=== PATIENT | male | born 1980 | race American Indian/Alaskan Native ===

== ENCOUNTER 2017-12-06 11:24 | Inpatient (IN) | payer OTHER ==
[2017-12-06 12:44] VITALS: BMI 22.2
--- NOTE | 2017-12-06 14:11 | HP ---
CIWA Score - CIWA Score Nausea/Vomitin-No Nausea/No Vomiting Muscle Tremors: 4-Moderate,w/Arms Extend Anxiety: 4-Mod. Anxious/Guarded Agitation: 4-Moderately Restless Paroxysmal Sweats: 3 Orientation: 0-Oriented Tacttile Disturbances: 0-None Auditory Disturbances: 0-None Visual Disturbances: 0-None Headache: 1-Very Mild CIWA-Ar Total Score: 16 Admission ROS BHS - HPI Chief Complaint: I need to stop drinking and get my life back. Allergies/Adverse Reactions: Allergies Allergy/AdvReac Type Severity Reaction Status Date / Time Penicillins Allergy Intermediate Rash Verified 12/06/17 13:24 egg Allergy Verified 12/06/17 13:24 chicken derived AdvReac Verified 12/06/17 13:24 tomato [Tomato] AdvReac Verified 12/06/17 13:24 History of Present Illness: pt is a 37yr old male with a history of alcohol and xanax and klonopin dependence seeking detox for treatment. pt is on a mmtp program received his dose of 40mg today verification done. Exam Limitations: No Limitations - Ebola screening Have you traveled outside of the country in the last 21 days: No Have you had contact with anyone from an Ebola affected area: No Have you been sick,other than usual withdrawal symptoms: No Do you have a fever: No - Review of Systems Constitutional: Diaphoresis, Loss of Appetite, Changes in sleep, Unintentional Wgt. Loss EENT: reports: Tearing Respiratory: reports: No Symptoms reported Cardiac: reports: No Symptoms Reported GI: reports: Poor Appetite, Poor Fluid Intake : reports: No Symptoms Reported Musculoskeletal: reports: Back Pain, Joint Pain Integumentary: reports: Flushing, Sweating Neuro: reports: Headache, Tingling, Tremors Endocrine: reports: Excessive Sweating, Flushing, Intolerance to Cold, Intolerance to Heat Hematology: reports: No Symptoms Reported Psychiatric: reports: Judgement Intact, Mood/Affect Appropiate, Orientated x3, Agitated, Anxious Other Systems: Reviewed and Negative Patient History - Patient Medical History Hx Anemia: No Hx Asthma: Yes Hx Chronic Obstructive Pulmonary Disease (COPD): No Hx Cancer: No Hx Cardiac Disorders: No Hx Congestive Heart Failure: No Hx Hypertension: No Hx Hypercholesterolemia: No Hx Pacemaker: No HX Cerebrovascular Accident: No Hx Seizures: No Hx Dementia: No Hx Diabetes: No Hx Gastrointestinal Disorders: No Hx Liver Disease: No Hx Genitourinary Disorders: No Hx Sexually Transmitted Disorders: No Hx Renal Disease (ESRD): No Hx Thyroid Disease: No Hx Human Immunodeficiency Virus (HIV): No (negative) Hx Hepatitis C: Yes (diagnosed in last 2yrs) Hx Depression: Yes Hx Suicide Attempt: No (denies) Hx Bipolar Disorder: No Hx Schizophrenia: No - Patient Surgical History Past Surgical History: Yes Hx Neurologic Surgery: No Hx Cataract Extraction: No Hx Cardiac Surgery: No Hx Lung Surgery: Yes (punctured left lung in 2006) Hx Breast Surgery: No Hx Breast Biopsy: No Hx Abdominal Surgery: No Hx Appendectomy: No Hx Cholecystectomy: No Hx Genitourinary Surgery: No Hx Section: No Hx Orthopedic Surgery: No Other Surgical History: lower back in 2006 Anesthesia Reaction: No - PPD History Previous Implant?: Yes Documented Results: Negative w/o proof Implanted On Prior R Admission?: Yes PPD to be Administered?: No - Reproductive History Patient is a Female of Child Bearing Age (11 -55 yrs old): No - Smoking Cessation Smoking history: Current every day smoker Have you smoked in the past 12 months: Yes Aproximately how many cigarettes per day: 6 Hx Chewing Tobacco Use: No Initiated information on smoking cessation: Yes 'Breaking Loose' booklet given: 12/06/17 - Substance & Tx. History Hx Alcohol Use: Yes Hx Substance Use: Yes Substance Use Type: Alcohol, Cocaine, Tranquilizers Hx Substance Use Treatment: Yes - Substances Abused Cocaine Route: Inhalation Frequency: Daily Amount used: 6 gms. Age of first use: 23 Date of Last Use: 12/06/17 Alcohol-vodka/beer Route: Oral Frequency: Daily Amount used: 1 gal./7-6 pks. Age of first use: 9 Date of Last Use: 12/05/17 Xanax/Klonopin Route: Oral Frequency: Daily Amount used: 8 mg./16 mg. Age of first use: 37 Date of Last Use: 12/05/17 Family Disease History - Family Disease History Family Disease History: Diabetes: Father, Other: Mother (depression) Admission Physical Exam BHS - Vital Signs Vital Signs: Vital Signs - 24 hr 12/06/17 12:41 Temperature 97.4 F L Pulse Rate 97 H Respiratory 20 Rate Blood Pressure 130/68 - Physical General Appearance: Yes: Appropriately Dressed, Mild Distress, Moderate Distress HEENTM: Yes: Hearing grossly Normal, Nasal Congestion, Rhinorrhea Respiratory: Yes: Lungs Clear, Normal Breath Sounds, No Respiratory Distress Neck: Yes: No masses,lesions,Nodules Breast: Yes: Within Normal Limits Cardiology: Yes: Regular Rhythm, Regular Rate, S1, S2 Abdominal: Yes: Normal Bowel Sounds, Non Tender, Soft Genitourinary: Yes: Within Normal Limits Back: Yes: Normal Inspection Musculoskeletal: Yes: full range of Motion, Back pain Extremities: Yes: Normal Capillary Refill, Non-Tender, Tremors Neurological: Yes: Fully Oriented, Normal Response Integumentary: Yes: Normal Color, Diaphoresis Lymphatic: Yes: Within Normal Limits - Diagnostic (1) Methadone maintenance therapy patient Current Visit: Yes Status: Chronic Comment: last dose received today with 40mg; dose verified with [facility] mmtp confirmed with BRITTANY Kirk and BRITTANY Garcia (2) Cocaine dependence Current Visit: No Status: Chronic Qualifiers: Substance use status: uncomplicated Qualified Code(s): F14.20 - Cocaine dependence, uncomplicated (3) H/O cardiac murmur Current Visit: No Status: Chronic (4) H/O scoliosis Current Visit: No Status: Chronic (5) Hepatitis C Current Visit: Yes Status: Chronic Qualifiers: Viral hepatitis chronicity: chronic (6) Nicotine dependence Current Visit: Yes Status: Chronic Qualifiers: Nicotine product type: cigarettes Substance use status: uncomplicated Qualified Code(s): F17.210 - Nicotine dependence, cigarettes, uncomplicated (7) Alcohol dependence with uncomplicated withdrawal Current Visit: Yes Status: Chronic (8) Asthma Current Visit: Yes Status: Chronic Qualifiers: Asthma severity: mild Cleared for Admission S - Detox or Rehab [facility] Level of Care: Medically Managed Detox Regimen/Protocol: Librium [facility] Breath Alcohol Content Breath Alcohol Content: 0 Urine Drug Screen - Results Drug Screen Negative: No Urine Drug Screen Results: JERMAINE-Cocaine, OPI-Opiates, BZO-Benzodiazepines, MTD- Methadone, OXY-Oxycodone
[2017-12-06] MEDS ORDERED: MAGNESIUM CITRATE 300 ML BOTTLE PO PRN (14:19)
[2017-12-06] MEDS ORDERED: hydrOXYzine PAMOATE 50 MG CAPSULE (FP) PO PRN (14:19)
[2017-12-06] MEDS ORDERED: MENTHOL/PHENOL 1 EACH UD MM PRN (14:19)
[2017-12-06] MEDS ORDERED: chlordiazePOXIDE HCL 25 MG CAPSULE PO PRN (14:19)
[2017-12-06] MEDS ORDERED: guaiFENesin/D-METHORPHAN HB 10 ML UNIT-DOSE CUPS PO PRN (14:19)
[2017-12-06] MEDS ORDERED: MAG HYDROX/AL HYDROX/SIMETH 30 ML UNIT-DOSE CUP PO PRN (14:19)
[2017-12-06] MEDS ORDERED: LOPERAMIDE HCL 2 MG CAPSULE PO PRN (14:19)
[2017-12-06] MEDS ORDERED: MAGNESIUM HYDROX 2400MG/30ML ORAL SUSPENSION 30 ML CUP PO PRN (14:19)
[2017-12-06] MEDS ORDERED: P-EPHED 60MG/TRIPROLIDI 2.5MG TABLET PO PRN (14:19)
[2017-12-06] MEDS ORDERED: NICOTINE POLACRILEX 4 MG GUM BUC PRN (14:19)
[2017-12-06] MEDS ORDERED: ACETAMINOPHEN 325 MG TABLET (FP) PO PRN (14:19)
[2017-12-06] MEDS ORDERED: ALBUTEROL SO4 18 GM HFA INHALER IH PRN (14:21)
[2017-12-06] MEDS ORDERED: chlordiazePOXIDE HCL 25 MG CAPSULE PO ONE (14:41)
[2017-12-06 17:12] LABS: URINE APPEARANCE SLCLOUDY; URINE BILIRUBIN NEGATIVE (NEGATIVE); URINE BLOOD NEGATIVE (NEGATIVE); URINE COLOR AMBER; URINE GLUCOSE (UA) NEGATIVE (NEGATIVE); URINE KETONE 2+ (NEGATIVE); URINE LEUK ESTERASE NEGATIVE (NEGATIVE); URINE NITRITE NEGATIVE (NEGATIVE)
[2017-12-06 17:13] LABS: URINE PROTEIN 1+ (NEGATIVE)
[2017-12-06 17:17] LABS: EPI CELLS RARE /HPF (FEW); URINE BACTERIA RARE /hpf (NONE SEEN); URINE MUCUS MANY
[2017-12-06] MEDS: chlordiazePOXIDE HCL 25 MG CAPSULE PO SCH ×2 (17:40→22:33)
[2017-12-06] MEDS: THIAMINE HCL 100 MG TABLET (FP) PO SCH (22:33)
[2017-12-07] MEDS: chlordiazePOXIDE HCL 25 MG CAPSULE PO SCH ×2 (06:59→10:14)
--- NOTE | 2017-12-07 07:26 | CONSULT ---
[facility] Psychiatric Consult - Data Date of interview: 12/07/17 Admission source: [facility] Identifying data: This is a 37years old AA male, , father of five, homelsee, on [place], with a history of Alcohol , Cocaine, Opioids and xanax, klonopin dependence seeking detox for treatment. Patient currently on a MMTP program receiveS his dose of 40mg daily, verification done. Substance Abuse History: Smoking history: Current every day smoker. Have you smoked in the past 12 months: Yes. Aproximately how many cigarettes per day: 6. Hx Chewing Tobacco Use: No. Initiated information on smoking cessation: Yes. 'Breaking Loose' booklet given: 12/06/17. - Substance & Tx. History. Hx Alcohol Use: Yes. Hx Substance Use: Yes. Substance Use Type: Alcohol, Cocaine , Tranquilizers. Hx Substance Use Treatment: Yes. - Substances Abused. Cocaine. Route: Inhalation. Frequency: Daily. Amount used: 6 gms. Age of first use: 23. Date of Last Use: 12/06/17. Alcohol-vodka/beer. Route: Oral. Frequency: Daily. Amount used: 1 gal./7-6 pks. Age of first use: 9. Date of Last Use: 12/05/17. Xanax/Klonopin. Route: Oral. Frequency: Daily. Amount used: 8 mg./16 mg. Age of first use: 37. Date of Last Use: 04/16 Medical History: Asthma, cardiac murmur history, Scoliosis, Hep C+, Psychiatric History: Patient denies past psychiatric history, reports no medications taking prior to admission Physical/Sexual Abuse/Trauma History: Denies Additional Comment: Observation. Detox Unit Care Protocol Mental Status Exam - Mental Status Exam Alert and Oriented to: Person Cognitive Function: Fair Patient Appearance: Unkempt Mood: Sad Affect: Flat Patient Behavior: Sedated Speech Pattern: Delayed Voice Loudness: Mildly Soft/Quiet Thought Process: Circumstantial Thought Disorder: Being Controlled Hallucinations: Denies Suicidal Ideation: Denies Homicidal Ideation: Denies Insight/Judgement: Fair Sleep: Difficulty falling asleep Appetite: Fair Muscle strength/Tone: Mild Hypotonicity Gait/Station: Shuffling Additional Comments: Observation. Detox Unit Care Protocol Psychiatric Findings - Problem List ([place] 1, 2,3) (1) Drug-induced mood disorder Current Visit: Yes Status: Suspected (2) Alcohol dependence with uncomplicated withdrawal Current Visit: Yes Status: Chronic (3) Methadone maintenance therapy patient Current Visit: Yes Status: Chronic Comment: last dose received today with 40mg; dose verified with [facility] mmtp confirmed with BRITTANY Kirk and BRITTANY Garcia (4) Nicotine dependence Current Visit: Yes Status: Chronic Qualifiers: Nicotine product type: cigarettes Substance use status: uncomplicated Qualified Code(s): F17.210 - Nicotine dependence, cigarettes, uncomplicated (5) Cocaine dependence Current Visit: No Status: Chronic Qualifiers: Substance use status: uncomplicated Qualified Code(s): F14.20 - Cocaine dependence, uncomplicated - Initial Treatment Plan Initial Treatment Plan: Observation. Detox Unit Care Protocol
[2017-12-07] MEDS: METHADONE HCL 40 MG DISPERSABLE TABLET PO SCH (10:13)
[2017-12-07] MEDS: PRENATAL VITAMINS W/ FOLIC ACID TABLET (FP) PO SCH (10:14)
[2017-12-07] MEDS: NICOTINE 21 MG/24 HOURS TOPICAL PATCH TD SCH (10:14)
[2017-12-07 10:18] LABS: HEMATOCRIT 38.9 % (35.4-49); HEMOGLOBIN 12.7 GM/dL (11.7-16.9); MCH 28.2 pg (25.7-33.7); MCHC 32.6 g/dl (32.0-35.9); MEAN CELL VOLUME 86.5 fl (80-96); MEAN PLT VOLUME 9.2 fl (7.5-11.1); PLATELET COUNT 176 K/MM3 (134-434); RDW 14.6 % (11.9-15.9); WHITE BLOOD COUNT 6.4 K/mm3 (4.0-10.0)
--- NOTE | 2017-12-07 10:24 | PN ---
S CIWA - CIWA Score Nausea/Vomitin Muscle Tremors: 3 Anxiety: 3 Agitation: 3 Paroxysmal Sweats: 1-Minimal Palms Moist Orientation: 0-Oriented Tacttile Disturbances: 1-Very Mild Itch/Numbness Auditory Disturbances: 1-Very Mild Visual Disturbances: 0-None Headache: 2-Mild CIWA-Ar Total Score: 17 BHS Progress Note (SOAP) Subjective: ALERT,IRRITABLE,ANXIOUS,INTERRUPTED SLEEP,TREMOR,PAIN IN THE BODY Objective: 12/07/17 10:22 Vital Signs Temperature 98.8 F 12/07/17 10:06 Pulse Rate 85 12/07/17 10:06 Respiratory Rate 20 12/07/17 10:06 Blood Pressure 111/69 12/07/17 10:06 O2 Sat by Pulse Oximetry (%) EKG NSR,NORMAL ECG Laboratory Last Values WBC 6.4 K/mm3 (4.0-10.0) D 12/07/17 06:00 RBC 4.50 M/mm3 (4.00-5.60) 12/07/17 06:00 Hgb 12.7 GM/dL (11.7-16.9) 12/07/17 06:00 Hct 38.9 % (35.4-49) 12/07/17 06:00 MCV 86.5 fl (80-96) 12/07/17 06:00 MCH 28.2 pg (25.7-33.7) 12/07/17 06:00 MCHC 32.6 g/dl (32.0-35.9) 12/07/17 06:00 RDW 14.6 % (11.9-15.9) 12/07/17 06:00 Plt Count 176 K/MM3 (134-434) 12/07/17 06:00 MPV 9.2 fl (7.5-11.1) 12/07/17 06:00 Urine Color Unique 12/06/17 15:50 Urine Appearance Slcloudy 12/06/17 15:50 Urine pH 5.0 (5.0-8.0) 12/06/17 15:50 Ur Specific [place] 1.033 (1.001-1.035) 12/06/17 15:50 Urine Protein 1+ (NEGATIVE) H 12/06/17 15:50 Urine Glucose (UA) Negative (NEGATIVE) 12/06/17 15:50 Urine Ketones 2+ (NEGATIVE) H 12/06/17 15:50 Urine Blood Negative (NEGATIVE) 12/06/17 15:50 Urine Nitrite Negative (NEGATIVE) 12/06/17 15:50 Urine Bilirubin Negative (NEGATIVE) 12/06/17 15:50 Urine Urobilinogen 2.0 mg/dL (0.2-1.0) 12/06/17 15:50 Ur Leukocyte Esterase Negative (NEGATIVE) 12/06/17 15:50 Urine WBC (Auto) 13 /hpf (3-5) 12/06/17 15:50 Urine RBC (Auto) 30 /hpf (0-3) 12/06/17 15:50 Ur Epithelial Cells Rare /HPF (FEW) 12/06/17 15:50 Urine Bacteria Rare /hpf (NONE SEEN) 12/06/17 15:50 Urine Mucus Many 12/06/17 15:50 LABS PENDING Assessment: 12/07/17 10:23 WITHDRAWAL SYMPTOM Plan: CONTINUE DETOX,REPEAT UA
[2017-12-07 10:25] LABS: CHLORIDE 100 mmol/L (98-107); POTASSIUM 3.9 mmol/L (3.5-5.1); SODIUM 136 mmol/L (136-145)
[2017-12-07 10:35] LABS: ALBUMIN 4.5 g/dl (3.4-5.0); ALK PHOS 104 U/L (45-117); ANION GAP 8 (8-16); BILIRUBIN,TOTAL 0.7 mg/dL (0.2-1.0); BLOOD UREA NITROGEN 19 mg/dL (7-18); CALCIUM 8.4 mg/dL (8.5-10.1); CO2 28 mmol/L (21-32); CREATININE 0.9 mg/dL (0.7-1.3); GLUCOSE,RANDOM 69 mg/dL (74-106); SGOT/AST 34 U/L (15-37); SGPT/ALT 29 U/L (12-78); TOT PROT 8.1 g/dl (6.4-8.2)
--- NOTE | 2017-12-07 12:16 | EKG ---
Test Reason : Blood Pressure : / mmHG Vent. Rate : 074 BPM Atrial Rate : 074 BPM P-R Int : 148 ms QRS Dur : 108 ms QT Int : 412 ms P-R-T Axes : 043 072 021 degrees QTc Int : 457 ms NORMAL SINUS RHYTHM NORMAL ECG NO PREVIOUS ECGS AVAILABLE Confirmed by ISELA DAWN MD ([id number]) on 12/07/2017 12:16:12 PM Referred By: Confirmed By:ISELA DAWN MD
--- NOTE | 2017-12-07 13:16 | PN ---
BHS Progress Note Note: PATIENT REQUESTED REGIMEN TO BE CHANGED TO VALIUM,INSTEAD OF LIBRIUM
[2017-12-07] MEDS ORDERED: diazePAM 5 MG TABLET PO ONE (13:47)
[2017-12-07] MEDS: diazePAM 5 MG TABLET PO SCH ×2 (14:02→22:16)
[2017-12-07] MEDS ORDERED: chlordiazePOXIDE HCL 25 MG CAPSULE PO SCH (17:00)
[2017-12-07 17:25] LABS: URINE APPEARANCE CLEAR; URINE BILIRUBIN NEGATIVE (NEGATIVE); URINE BLOOD NEGATIVE (NEGATIVE); URINE COLOR AMBER; URINE GLUCOSE (UA) NEGATIVE (NEGATIVE); URINE KETONE TRACE (NEGATIVE); URINE LEUK ESTERASE NEGATIVE (NEGATIVE); URINE NITRITE NEGATIVE (NEGATIVE); URINE PROTEIN NEGATIVE (NEGATIVE); URINE UROBILINOGEN 4.0 E.U/dl mg/dL (0.2-1.0)
[2017-12-07] MEDS: DOXYCYCLINE HYCLATE 100 MG TABLET PO SCH (18:50)
[2017-12-07] MEDS: THIAMINE HCL 100 MG TABLET (FP) PO SCH (22:16)
[2017-12-07] MEDS: IBUPROFEN 400 MG TABLET (FP) PO PRN (22:17)
[2017-12-08] MEDS: diazePAM 5 MG TABLET PO SCH ×3 (06:42→23:50)
[2017-12-08] MEDS: DOXYCYCLINE HYCLATE 100 MG TABLET PO SCH ×2 (10:19→17:04)
[2017-12-08] MEDS: PRENATAL VITAMINS W/ FOLIC ACID TABLET (FP) PO SCH (10:20)
[2017-12-08] MEDS: METHADONE HCL 40 MG DISPERSABLE TABLET PO SCH (10:20)
[2017-12-08] MEDS: NICOTINE 21 MG/24 HOURS TOPICAL PATCH TD SCH (10:20)
[2017-12-08] MEDS: diazePAM 5 MG TABLET PO PRN ×2 (10:23→17:01)
[2017-12-08] MEDS: IBUPROFEN 400 MG TABLET (FP) PO PRN (10:36)
--- NOTE | 2017-12-08 10:51 | PN ---
S CIWA - CIWA Score Nausea/Vomitin Muscle Tremors: 3 Anxiety: 2 Agitation: 2 Paroxysmal Sweats: 1-Minimal Palms Moist Orientation: 0-Oriented Tacttile Disturbances: 1-Very Mild Itch/Numbness Auditory Disturbances: 1-Very Mild Visual Disturbances: 1-Very Mild Sensitivity Headache: 2-Mild CIWA-Ar Total Score: 16 BHS Progress Note (SOAP) Subjective: ALERT,IRRITABLE,ANXIOUS,TREMOR,PAIN IN THE RIGHT ELBOW AT SITE OF IV INJECTION, WITH ERYTHEMA WITH PAIN ON MOVEMENT CELLULITIS Objective: 12/08/17 10:48 Vital Signs Temperature 98.1 F 12/07/17 22:23 Pulse Rate 85 12/07/17 22:23 Respiratory Rate 18 12/08/17 05:55 Blood Pressure 113/59 12/07/17 22:23 O2 Sat by Pulse Oximetry (%) 12/08/17 10:49 Laboratory Last Values WBC 6.4 K/mm3 (4.0-10.0) D 12/07/17 06:00 RBC 4.50 M/mm3 (4.00-5.60) 12/07/17 06:00 Hgb 12.7 GM/dL (11.7-16.9) 12/07/17 06:00 Hct 38.9 % (35.4-49) 12/07/17 06:00 MCV 86.5 fl (80-96) 12/07/17 06:00 MCH 28.2 pg (25.7-33.7) 12/07/17 06:00 MCHC 32.6 g/dl (32.0-35.9) 12/07/17 06:00 RDW 14.6 % (11.9-15.9) 12/07/17 06:00 Plt Count 176 K/MM3 (134-434) 12/07/17 06:00 MPV 9.2 fl (7.5-11.1) 12/07/17 06:00 Sodium 136 mmol/L (136-145) 12/07/17 06:00 Potassium 3.9 mmol/L (3.5-5.1) 12/07/17 06:00 Chloride 100 mmol/L (98-107) 12/07/17 06:00 Carbon Dioxide 28 mmol/L (21-32) 12/07/17 06:00 Anion Gap 8 (8-16) 12/07/17 06:00 BUN 19 mg/dL (7-18) H D 12/07/17 06:00 Creatinine 0.9 mg/dL (0.7-1.3) 12/07/17 06:00 Creat Clearance w eGFR > 60 (>60) 12/07/17 06:00 Random Glucose 69 mg/dL (74-106) L 12/07/17 06:00 Calcium 8.4 mg/dL (8.5-10.1) L 12/07/17 06:00 Total Bilirubin 0.7 mg/dL (0.2-1.0) D 12/07/17 06:00 AST 34 U/L (15-37) 12/07/17 06:00 ALT 29 U/L (12-78) 12/07/17 06:00 Alkaline Phosphatase 104 U/L (45-117) D 12/07/17 06:00 Total Protein 8.1 g/dl (6.4-8.2) D 12/07/17 06:00 Albumin 4.5 g/dl (3.4-5.0) D 12/07/17 06:00 Urine Color Unique 12/07/17 14:20 Urine Appearance Clear 12/07/17 14:20 Urine pH 6.0 (5.0-8.0) 12/07/17 14:20 Ur Specific [place] 1.028 (1.001-1.035) 12/07/17 14:20 Urine Protein Negative (NEGATIVE) 12/07/17 14:20 Urine Glucose (UA) Negative (NEGATIVE) 12/07/17 14:20 Urine Ketones Trace (NEGATIVE) H 12/07/17 14:20 Urine Blood Negative (NEGATIVE) 12/07/17 14:20 Urine Nitrite Negative (NEGATIVE) 12/07/17 14:20 Urine Bilirubin Negative (NEGATIVE) 12/07/17 14:20 Urine Urobilinogen 4.0 e.u/dl mg/dL (0.2-1.0) 12/07/17 14:20 Ur Leukocyte Esterase Negative (NEGATIVE) 12/07/17 14:20 Urine WBC (Auto) 13 /hpf (3-5) 12/06/17 15:50 Urine RBC (Auto) 30 /hpf (0-3) 12/06/17 15:50 Ur Epithelial Cells Rare /HPF (FEW) 12/06/17 15:50 Urine Bacteria Rare /hpf (NONE SEEN) 12/06/17 15:50 Urine Mucus Many 12/06/17 15:50 RPR Titer Nonreactive (NONREACTIVE) 12/07/17 06:00 HIV 1&2 Antibody Screen Negative 12/06/17 14:45 HIV P24 Antigen Negative 12/06/17 14:45 12/08/17 10:50 Laboratory Results - last 24 hr 12/06/17 12/07/17 12/07/17 14:45 06:00 14:20 Urine Color Unique Urine Appearance Clear Urine pH 6.0 Ur Specific [place] 1.028 Urine Protein Negative Urine Glucose (UA) Negative Urine Ketones Trace H Urine Blood Negative Urine Nitrite Negative Urine Bilirubin Negative Urine Urobilinogen 4.0 e.u/dl Ur Leukocyte Esterase Negative RPR Titer Nonreactive HIV 1&2 Antibody Screen Negative HIV P24 Antigen Negative Assessment: 12/08/17 10:48 WITHDRAWAL SYMPTOM CELLULITIS OF RIGHT ELBOW Plan: CONTINUE DETOX,CLINDAMYCIN 300 MGS PO TID FOR 7 DAYS
[2017-12-08] MEDS: CLINDAMYCIN HCL 150 MG CAPSULE (FP) PO SCH ×2 (14:40→22:50)
[2017-12-08] MEDS ORDERED: chlordiazePOXIDE 5 MG CAPSULE PO SCH (17:00)
[2017-12-08] MEDS: THIAMINE HCL 100 MG TABLET (FP) PO SCH (22:55)
[2017-12-09] MEDS: CLINDAMYCIN HCL 150 MG CAPSULE (FP) PO SCH ×3 (06:51→23:00)
[2017-12-09] MEDS ORDERED: ONDANSETRON *ODT* 4 MG TABLET SL PRN (09:32)
[2017-12-09] MEDS ORDERED: ONDANSETRON *ODT* 4 MG TABLET SL ONE (10:45)
[2017-12-09] MEDS: METHADONE HCL 40 MG DISPERSABLE TABLET PO SCH (11:04)
[2017-12-09] MEDS: PRENATAL VITAMINS W/ FOLIC ACID TABLET (FP) PO SCH (11:05)
[2017-12-09] MEDS: diazePAM 5 MG TABLET PO SCH ×2 (11:05→23:01)
[2017-12-09] MEDS: DOXYCYCLINE HYCLATE 100 MG TABLET PO SCH ×2 (11:05→17:21)
[2017-12-09] MEDS: NICOTINE 21 MG/24 HOURS TOPICAL PATCH TD SCH (11:07)
--- NOTE | 2017-12-09 12:52 | PN ---
BHS Progress Note (SOAP) Subjective: vomiting shakes R Antecubital pain Objective: 12/09/17 12:49 active vomiting sweats swelling to R antecubital area Assessment: 12/09/17 12:50 withdrawal sx tenderness/swelling to R AC s/p IVDA no acute distress Plan: continue detox zofran for nausea/vomiting hydrocortisone/bacitracin to AC area
[2017-12-09] MEDS ORDERED: BACITRACIN 0.9 GM PACKET TP PRN (12:56)
[2017-12-09] MEDS: diazePAM 5 MG TABLET PO PRN ×3 (13:15→21:27)
[2017-12-09] MEDS: IBUPROFEN 400 MG TABLET (FP) PO PRN ×2 (13:15→21:27)
[2017-12-09] MEDS ORDERED: HYDROCORTISONE 0.5% TOPICAL OINTMENT TUBE TP PRN (13:36)
[2017-12-09] MEDS ORDERED: chlordiazePOXIDE HCL 10 MG CAPSULE PO SCH (17:00)
[2017-12-09] MEDS: BACITRACIN 0.9 GM PACKET TP SCH (21:26)
[2017-12-09] MEDS: THIAMINE HCL 100 MG TABLET (FP) PO SCH (21:26)
[2017-12-10] MEDS: CLINDAMYCIN HCL 150 MG CAPSULE (FP) PO SCH ×3 (07:20→23:19)
[2017-12-10] MEDS ORDERED: BACITRACIN 0.9 GM PACKET ONE (09:20)
[2017-12-10] MEDS: diazePAM 5 MG TABLET PO PRN (09:23)
--- NOTE | 2017-12-10 10:34 | PN ---
BHS Progress Note (SOAP) Subjective: alert oriented x 3 mild anxiety less restlessness Objective: 12/10/17 10:33 Vital Signs Temperature 95.9 F L 12/10/17 09:58 Pulse Rate 68 12/10/17 09:58 Respiratory Rate 18 12/10/17 09:58 Blood Pressure 101/64 12/10/17 09:58 O2 Sat by Pulse Oximetry (%) Laboratory Last Values WBC 6.4 K/mm3 (4.0-10.0) D 12/07/17 06:00 RBC 4.50 M/mm3 (4.00-5.60) 12/07/17 06:00 Hgb 12.7 GM/dL (11.7-16.9) 12/07/17 06:00 Hct 38.9 % (35.4-49) 12/07/17 06:00 MCV 86.5 fl (80-96) 12/07/17 06:00 MCH 28.2 pg (25.7-33.7) 12/07/17 06:00 MCHC 32.6 g/dl (32.0-35.9) 12/07/17 06:00 RDW 14.6 % (11.9-15.9) 12/07/17 06:00 Plt Count 176 K/MM3 (134-434) 12/07/17 06:00 MPV 9.2 fl (7.5-11.1) 12/07/17 06:00 Sodium 136 mmol/L (136-145) 12/07/17 06:00 Potassium 3.9 mmol/L (3.5-5.1) 12/07/17 06:00 Chloride 100 mmol/L (98-107) 12/07/17 06:00 Carbon Dioxide 28 mmol/L (21-32) 12/07/17 06:00 Anion Gap 8 (8-16) 12/07/17 06:00 BUN 19 mg/dL (7-18) H D 12/07/17 06:00 Creatinine 0.9 mg/dL (0.7-1.3) 12/07/17 06:00 Creat Clearance w eGFR > 60 (>60) 12/07/17 06:00 Random Glucose 69 mg/dL (74-106) L 12/07/17 06:00 Calcium 8.4 mg/dL (8.5-10.1) L 12/07/17 06:00 Total Bilirubin 0.7 mg/dL (0.2-1.0) D 12/07/17 06:00 AST 34 U/L (15-37) 12/07/17 06:00 ALT 29 U/L (12-78) 12/07/17 06:00 Alkaline Phosphatase 104 U/L (45-117) D 12/07/17 06:00 Total Protein 8.1 g/dl (6.4-8.2) D 12/07/17 06:00 Albumin 4.5 g/dl (3.4-5.0) D 12/07/17 06:00 Urine Color Unique 12/07/17 14:20 Urine Appearance Clear 12/07/17 14:20 Urine pH 6.0 (5.0-8.0) 12/07/17 14:20 Ur Specific [place] 1.028 (1.001-1.035) 12/07/17 14:20 Urine Protein Negative (NEGATIVE) 12/07/17 14:20 Urine Glucose (UA) Negative (NEGATIVE) 12/07/17 14:20 Urine Ketones Trace (NEGATIVE) H 12/07/17 14:20 Urine Blood Negative (NEGATIVE) 12/07/17 14:20 Urine Nitrite Negative (NEGATIVE) 12/07/17 14:20 Urine Bilirubin Negative (NEGATIVE) 12/07/17 14:20 Urine Urobilinogen 4.0 e.u/dl mg/dL (0.2-1.0) 12/07/17 14:20 Ur Leukocyte Esterase Negative (NEGATIVE) 12/07/17 14:20 Urine WBC (Auto) 13 /hpf (3-5) 12/06/17 15:50 Urine RBC (Auto) 30 /hpf (0-3) 12/06/17 15:50 Ur Epithelial Cells Rare /HPF (FEW) 12/06/17 15:50 Urine Bacteria Rare /hpf (NONE SEEN) 12/06/17 15:50 Urine Mucus Many 12/06/17 15:50 RPR Titer Nonreactive (NONREACTIVE) 12/07/17 06:00 HIV 1&2 Antibody Screen Negative 12/06/17 14:45 HIV P24 Antigen Negative 12/06/17 14:45 lab noted Assessment: 12/10/17 10:33 mild withdrawal sx Plan: medically supervised detox
[2017-12-10] MEDS: METHADONE HCL 40 MG DISPERSABLE TABLET PO SCH (10:38)
[2017-12-10] MEDS: BACITRACIN 0.9 GM PACKET TP SCH ×2 (10:38→23:19)
[2017-12-10] MEDS: PRENATAL VITAMINS W/ FOLIC ACID TABLET (FP) PO SCH (10:38)
[2017-12-10] MEDS: DOXYCYCLINE HYCLATE 100 MG TABLET PO SCH ×2 (10:38→20:07)
[2017-12-10] MEDS: diazePAM 5 MG TABLET PO SCH ×2 (10:39→23:19)
[2017-12-10] MEDS: NICOTINE 21 MG/24 HOURS TOPICAL PATCH TD SCH (10:39)
[2017-12-10] MEDS: THIAMINE HCL 100 MG TABLET (FP) PO SCH (23:19)
[2017-12-11] MEDS: CLINDAMYCIN HCL 150 MG CAPSULE (FP) PO SCH (08:30)
--- NOTE | 2017-12-11 08:39 | DS ---
[facility] Detox Discharge Summary Admission Date: 12/06/17 Discharge Date: 12/11/17 - History Present History: Alcohol Dependence, Cocaine Dependence, MMTP Additional Comments: follow up with after care program as arrangement Pertinent Past History: asthma hepatitis c nicotine dependence history of scoliosis cellulitis left elbow - Physical Exam Results Vital Signs: Vital Signs Temperature 97.9 F 12/11/17 06:13 Pulse Rate 66 12/11/17 06:13 Respiratory Rate 18 12/11/17 06:13 Blood Pressure 110/54 12/11/17 06:13 O2 Sat by Pulse Oximetry (%) Pertinent Admission Physical Exam Findings: withdrawal symptom and finding - Treatment Hospital Course: Detox Protocol Followed, Detoxed Safely, Responded well, Discharged Condition Good, Rehab Referral Accepted Patient has Accepted a Rehab Referral to: [facility] - Medication Discharge Medications: Ambulatory Orders Albuterol Sulfate Inhaler - [Ventolin HFA Inhaler -] 2 inh IH Q4H PRN #0 inh - Diagnosis (1) Alcohol dependence with uncomplicated withdrawal Current Visit: Yes Status: Acute (2) Asthma Current Visit: Yes Status: Chronic Qualifiers: Asthma severity: mild (3) Hepatitis C Current Visit: Yes Status: Chronic Qualifiers: Viral hepatitis chronicity: chronic (4) Methadone maintenance therapy patient Current Visit: Yes Status: Chronic (5) Nicotine dependence Current Visit: Yes Status: Chronic Qualifiers: Nicotine product type: cigarettes Substance use status: uncomplicated Qualified Code(s): F17.210 - Nicotine dependence, cigarettes, uncomplicated (6) Drug-induced mood disorder Current Visit: Yes Status: Suspected (7) Cocaine dependence Current Visit: No Status: Chronic Qualifiers: Substance use status: uncomplicated Qualified Code(s): F14.20 - Cocaine dependence, uncomplicated (8) H/O scoliosis Current Visit: No Status: Chronic (9) Cellulitis Current Visit: Yes Status: Acute - AMA Did Patient Leave Against Medical Advice: No
[2017-12-11] MEDS ORDERED: BACITRACIN 0.9 GM PACKET ONE (09:15)
[2017-12-11] MEDS ORDERED: diazePAM 5 MG TABLET PO SCH (10:00)
[2017-12-11] MEDS: PRENATAL VITAMINS W/ FOLIC ACID TABLET (FP) PO SCH (10:11)
[2017-12-11] MEDS: METHADONE HCL 40 MG DISPERSABLE TABLET PO SCH (10:11)
[2017-12-11] MEDS: BACITRACIN 0.9 GM PACKET TP SCH (10:12)
[2017-12-11] MEDS: DOXYCYCLINE HYCLATE 100 MG TABLET PO SCH (10:12)
[2017-12-11] MEDS: NICOTINE 21 MG/24 HOURS TOPICAL PATCH TD SCH (10:12)
[2017-12-11 10:33] VITALS: BP 114/56; PULSE 71; TEMP 97.2
== END 2017-12-11 11:25 | disposition other institution (70) | DRG 773 ==
LOC: YASAS 11:24 → Y6N 14:34
PROVIDERS: ADMIT Internal Medicine; ATTEND Internal Medicine
PROC: HZ2ZZZZ Detoxification Services for Substance Abuse Treatment (ICD-10-PCS; principal; 2017-12-06)
DX: F10.230 Alcohol dependence with withdrawal, uncomplicated (principal); F11.20 Opioid dependence, uncomplicated; F14.20 Cocaine dependence, uncomplicated; F17.210 Nicotine dependence, cigarettes, uncomplicated; F19.24 Other psychoactive substance dependence with psychoactive substance-induced mood disorder; J45.909 Unspecified asthma, uncomplicated; B18.2 Chronic viral hepatitis C; L03.113 Cellulitis of right upper limb; M41.9 Scoliosis, unspecified; R01.1 Cardiac murmur, unspecified; Z88.0 Allergy status to penicillin; Z91.012 Allergy to eggs
CPT/HCPCS: 36415; 80053; 81003; 81015; 85027; 86593; 87389; 93005; 93010

== ENCOUNTER 2017-12-11 11:34 | Inpatient (IN) | payer OTHER ==
[2017-12-11 12:23] VITALS: BMI 23.1
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
[2017-12-11] MEDS ORDERED: hydrOXYzine PAMOATE 50 MG CAPSULE (FP) PO PRN (13:34)
[2017-12-11] MEDS ORDERED: guaiFENesin/D-METHORPHAN HB 10 ML UNIT-DOSE CUPS PO PRN (13:34)
[2017-12-11] MEDS ORDERED: LOPERAMIDE HCL 2 MG CAPSULE PO PRN (13:34)
[2017-12-11] MEDS ORDERED: P-EPHED 60MG/TRIPROLIDI 2.5MG TABLET PO PRN (13:34)
[2017-12-11] MEDS ORDERED: MENTHOL/PHENOL 1 EACH UD MM PRN (13:34)
[2017-12-11] MEDS ORDERED: MAG HYDROX/AL HYDROX/SIMETH 30 ML UNIT-DOSE CUP PO PRN (13:34)
[2017-12-11] MEDS ORDERED: MAGNESIUM CITRATE 300 ML BOTTLE PO PRN (13:34)
[2017-12-11] MEDS ORDERED: IBUPROFEN 400 MG TABLET (FP) PO PRN (13:34)
[2017-12-11] MEDS ORDERED: MAGNESIUM HYDROX 2400MG/30ML ORAL SUSPENSION 30 ML CUP PO PRN (13:34)
--- NOTE | 2017-12-11 13:34 | HP ---
[facility] Rehab Assess/Revision - Admission History Admitted to Rehab from: [facility] [place] Date of Admission to Rehab: 12/11/2017 - Vital signs Vital Signs: Vital Signs Period Temp Pulse Resp BP Sys/Martin Pulse Ox Last 24 Hr 97.7 F 92 20 116/69 - Findings Detox History & Physical reviewed: Yes Concur with findings: Yes Inpatient Rehab Admission - Initial Determination Are CD services needed?: Yes Free of communicable disease: Yes Not in need of hospitalization: Yes - Rehab Admission Criteria Lacks judgement: Yes Patient is meeting Inpatient Rehab admission criteria:: Yes
[2017-12-11] MEDS ORDERED: ALBUTEROL SO4 18 GM HFA INHALER IH PRN (13:35)
[2017-12-11] MEDS ORDERED: COLLOIDAL OATMEAL 1 BAR EACH TP PRN (15:17)
[2017-12-11] MEDS: DOXYCYCLINE HYCLATE 100 MG TABLET PO SCH (17:46)
[2017-12-11] MEDS ORDERED: PT OWN MED DRAWER 7, Y5N ONE (20:14)
[2017-12-11] MEDS: THIAMINE HCL 100 MG TABLET (FP) PO SCH (21:11)
[2017-12-11] MEDS: OLANZapine 5 MG TABLET PO SCH (21:11)
[2017-12-11] MEDS: lamoTRIgine 25 MG TABLET PO SCH (21:12)
[2017-12-11] MEDS: NICOTINE POLACRILEX 2 MG GUM BUC PRN (21:12)
[2017-12-12] MEDS ORDERED: METHADONE HCL 40 MG DISPERSABLE TABLET PO SCH (06:00)
[2017-12-12] MEDS: ACETAMINOPHEN 325 MG TABLET (FP) PO PRN ×2 (06:43→18:09)
[2017-12-12] MEDS: DOXYCYCLINE HYCLATE 100 MG TABLET PO SCH ×2 (09:58→18:08)
[2017-12-12] MEDS ORDERED: PT OWN MED DRAWER 7, Y5N ONE ×2 (09:59→18:08)
[2017-12-12] MEDS: NICOTINE 14 MG/24 HOURS TOPICAL PATCH TD SCH (09:59)
[2017-12-12] MEDS: PRENATAL VITAMINS W/ FOLIC ACID TABLET (FP) PO SCH (09:59)
--- NOTE | 2017-12-12 14:07 | PN ---
[facility] Progress Note (SOAP) Subjective: c/o increasing pain right antecubital fossa from injecting cocaine or cafeine pills since admisssion. Objective: 12/12/17 14:06 Vital Signs - 24 hr 12/12/17 07:03 Temperature 97.6 F Pulse Rate 65 Respiratory 18 Rate Blood Pressure 102/54 labs reveiwed 12/12/17 14:06 tender nodule r antecubital fossa, no flutuance or erythema Assessment: 12/12/17 14:07 infected injection site, start bactrimds bid, naprosyn bid for pauin
[2017-12-12] MEDS: SULFAMETHOXAZOLE/TRIMETHOPRIM 800MG/160MG D.S. TABLET PO SCH (21:28)
[2017-12-12] MEDS: THIAMINE HCL 100 MG TABLET (FP) PO SCH (21:28)
[2017-12-12] MEDS: lamoTRIgine 25 MG TABLET PO SCH (21:28)
[2017-12-12] MEDS: NAPROXEN 500 MG TABLET (FP) PO SCH (21:28)
[2017-12-12] MEDS: OLANZapine 5 MG TABLET PO SCH (21:29)
[2017-12-13] MEDS: NAPROXEN 500 MG TABLET (FP) PO SCH ×2 (09:51→21:23)
[2017-12-13] MEDS: PRENATAL VITAMINS W/ FOLIC ACID TABLET (FP) PO SCH (09:51)
[2017-12-13] MEDS: SULFAMETHOXAZOLE/TRIMETHOPRIM 800MG/160MG D.S. TABLET PO SCH ×2 (09:52→21:23)
[2017-12-13] MEDS: METHADONE HCL 40 MG DISPERSABLE TABLET PO SCH (09:52)
[2017-12-13] MEDS: NICOTINE 14 MG/24 HOURS TOPICAL PATCH TD SCH (09:52)
[2017-12-13] MEDS: DOXYCYCLINE HYCLATE 100 MG TABLET PO SCH ×2 (09:53→17:02)
[2017-12-13] MEDS ORDERED: PT OWN MED DRAWER 7, Y5N ONE ×2 (09:53→16:38)
[2017-12-13] MEDS ORDERED: PANTOPRAZOLE 40 MG TABLET (FP) PO SCH (10:00)
--- NOTE | 2017-12-13 12:19 | PN ---
[facility] Progress Note (SOAP) Subjective: pain and swelling dereased si on antibiotics prescribed, Objective: 12/13/17 12:18 Vital Signs - 24 hr 12/13/17 00:30 Respiratory 18 Rate labs reviewed Assessment: 12/13/17 12:19 abscess /cellulitis imporved on antibiotics
[2017-12-13] MEDS: THIAMINE HCL 100 MG TABLET (FP) PO SCH (21:23)
[2017-12-13] MEDS: lamoTRIgine 25 MG TABLET PO SCH (21:23)
[2017-12-13] MEDS: OLANZapine 5 MG TABLET PO SCH (21:24)
[2017-12-14] MEDS ORDERED: PT OWN MED DRAWER 7, Y5N ONE (08:59)
[2017-12-14] MEDS: NAPROXEN 500 MG TABLET (FP) PO SCH ×2 (10:00→22:07)
[2017-12-14] MEDS: SULFAMETHOXAZOLE/TRIMETHOPRIM 800MG/160MG D.S. TABLET PO SCH ×2 (10:00→22:08)
[2017-12-14] MEDS: NICOTINE 14 MG/24 HOURS TOPICAL PATCH TD SCH (10:00)
[2017-12-14] MEDS: PANTOPRAZOLE 40 MG TABLET (FP) PO SCH (10:01)
[2017-12-14] MEDS: DOXYCYCLINE HYCLATE 100 MG TABLET PO SCH ×2 (10:01→18:30)
[2017-12-14] MEDS: METHADONE HCL 40 MG DISPERSABLE TABLET PO SCH (10:01)
[2017-12-14] MEDS: PRENATAL VITAMINS W/ FOLIC ACID TABLET (FP) PO SCH (10:01)
[2017-12-14] MEDS: NICOTINE POLACRILEX 2 MG GUM BUC PRN (10:04)
[2017-12-14] MEDS ORDERED: METHADONE HCL 40 MG DISPERSABLE TABLET PO SCH (12:13)
--- NOTE | 2017-12-14 12:14 | PN ---
S Progress Note (SOAP) Subjective: patient wishes to decrease methadone to switch to suboxone will decrease by 10% to 35mg per week while in rehab Objective: 12/14/17 12:14 Vital Signs - 24 hr 12/14/17 12/14/17 12/14/17 00:30 03:30 06:50 Temperature 98.2 F Pulse Rate 67 Respiratory 17 16 18 Rate Blood Pressure 110/68 labs reviewed order placed as requested
[2017-12-14] MEDS ORDERED: METHADONE 30 MG, METHADONE 5 MG PO ONE (12:45)
[2017-12-14] MEDS ORDERED: METHADONE HCL 5 MG TABLET ONE (13:02)
[2017-12-14] MEDS ORDERED: METHADONE HCL 10 MG TABLET ONE (13:02)
[2017-12-14] MEDS: THIAMINE HCL 100 MG TABLET (FP) PO SCH (22:07)
[2017-12-14] MEDS: OLANZapine 5 MG TABLET PO SCH (22:07)
[2017-12-14] MEDS: lamoTRIgine 25 MG TABLET PO SCH (22:07)
[2017-12-15] MEDS ORDERED: METHADONE HCL 10 MG TABLET ONE ×2 (04:13→10:50)
[2017-12-15] MEDS ORDERED: METHADONE HCL 5 MG TABLET ONE ×2 (04:13→10:50)
[2017-12-15] MEDS ORDERED: METHADONE 30 MG, METHADONE 5 MG PO SCH (06:00)
[2017-12-15] MEDS: DOXYCYCLINE HYCLATE 100 MG TABLET PO SCH ×2 (10:15→17:57)
[2017-12-15] MEDS: SULFAMETHOXAZOLE/TRIMETHOPRIM 800MG/160MG D.S. TABLET PO SCH ×2 (10:15→21:29)
[2017-12-15] MEDS: PANTOPRAZOLE 40 MG TABLET (FP) PO SCH (10:15)
[2017-12-15] MEDS: NAPROXEN 500 MG TABLET (FP) PO SCH ×2 (10:15→21:29)
[2017-12-15] MEDS: NICOTINE 14 MG/24 HOURS TOPICAL PATCH TD SCH (10:15)
[2017-12-15] MEDS: PRENATAL VITAMINS W/ FOLIC ACID TABLET (FP) PO SCH (10:16)
[2017-12-15] MEDS ORDERED: METHADONE HCL 10 MG TABLET PO ONE (10:21)
[2017-12-15] MEDS ORDERED: METHADONE 30 MG, METHADONE 5 MG PO ONE (10:45)
[2017-12-15] MEDS: NICOTINE POLACRILEX 2 MG GUM BUC PRN (13:24)
[2017-12-15] MEDS: THIAMINE HCL 100 MG TABLET (FP) PO SCH (21:29)
[2017-12-15] MEDS: lamoTRIgine 25 MG TABLET PO SCH (21:29)
[2017-12-15] MEDS: OLANZapine 5 MG TABLET PO SCH (21:30)
[2017-12-16] MEDS ORDERED: METHADONE HCL 5 MG TABLET ONE (08:58)
[2017-12-16] MEDS ORDERED: METHADONE HCL 10 MG TABLET ONE (08:58)
[2017-12-16] MEDS: DOXYCYCLINE HYCLATE 100 MG TABLET PO SCH ×2 (09:53→17:25)
[2017-12-16] MEDS: PRENATAL VITAMINS W/ FOLIC ACID TABLET (FP) PO SCH (09:53)
[2017-12-16] MEDS: METHADONE 30 MG, METHADONE 5 MG PO SCH (09:53)
[2017-12-16] MEDS: NAPROXEN 500 MG TABLET (FP) PO SCH ×2 (09:53→21:20)
[2017-12-16] MEDS: SULFAMETHOXAZOLE/TRIMETHOPRIM 800MG/160MG D.S. TABLET PO SCH ×2 (09:53→21:20)
[2017-12-16] MEDS: PANTOPRAZOLE 40 MG TABLET (FP) PO SCH (09:53)
[2017-12-16] MEDS: NICOTINE 14 MG/24 HOURS TOPICAL PATCH TD SCH (09:54)
[2017-12-16] MEDS: THIAMINE HCL 100 MG TABLET (FP) PO SCH (21:19)
[2017-12-16] MEDS: lamoTRIgine 25 MG TABLET PO SCH (21:19)
[2017-12-16] MEDS: OLANZapine 5 MG TABLET PO SCH (21:21)
[2017-12-17] MEDS ORDERED: METHADONE HCL 10 MG TABLET ONE (08:41)
[2017-12-17] MEDS ORDERED: METHADONE HCL 5 MG TABLET ONE (08:41)
[2017-12-17] MEDS: DOXYCYCLINE HYCLATE 100 MG TABLET PO SCH ×2 (09:49→17:49)
[2017-12-17] MEDS: PANTOPRAZOLE 40 MG TABLET (FP) PO SCH (09:49)
[2017-12-17] MEDS: SULFAMETHOXAZOLE/TRIMETHOPRIM 800MG/160MG D.S. TABLET PO SCH ×2 (09:49→22:16)
[2017-12-17] MEDS: PRENATAL VITAMINS W/ FOLIC ACID TABLET (FP) PO SCH (09:50)
[2017-12-17] MEDS: NAPROXEN 500 MG TABLET (FP) PO SCH ×2 (09:50→22:16)
[2017-12-17] MEDS: METHADONE 30 MG, METHADONE 5 MG PO SCH (09:50)
[2017-12-17] MEDS: ACETAMINOPHEN 325 MG TABLET (FP) PO PRN (11:29)
[2017-12-17] MEDS: NICOTINE 14 MG/24 HOURS TOPICAL PATCH TD SCH (11:30)
[2017-12-17] MEDS: THIAMINE HCL 100 MG TABLET (FP) PO SCH (22:16)
[2017-12-17] MEDS: lamoTRIgine 25 MG TABLET PO SCH (22:16)
[2017-12-17] MEDS: OLANZapine 5 MG TABLET PO SCH (22:17)
[2017-12-18] MEDS ORDERED: METHADONE HCL 10 MG TABLET ONE (08:53)
[2017-12-18] MEDS ORDERED: METHADONE HCL 5 MG TABLET ONE (08:54)
[2017-12-18] MEDS: PRENATAL VITAMINS W/ FOLIC ACID TABLET (FP) PO SCH (09:59)
[2017-12-18] MEDS: METHADONE 30 MG, METHADONE 5 MG PO SCH (10:00)
[2017-12-18] MEDS: NAPROXEN 500 MG TABLET (FP) PO SCH ×2 (10:00→21:19)
[2017-12-18] MEDS: PANTOPRAZOLE 40 MG TABLET (FP) PO SCH (10:00)
[2017-12-18] MEDS: SULFAMETHOXAZOLE/TRIMETHOPRIM 800MG/160MG D.S. TABLET PO SCH ×2 (10:00→21:19)
[2017-12-18] MEDS: DOXYCYCLINE HYCLATE 100 MG TABLET PO SCH (10:00)
[2017-12-18] MEDS: NICOTINE 14 MG/24 HOURS TOPICAL PATCH TD SCH (10:04)
[2017-12-18] MEDS ORDERED: COLLOIDAL OATMEAL 1 BAR EACH TP PRN (14:11)
--- NOTE | 2017-12-18 14:13 | PN ---
S Progress Note (SOAP) Subjective: c/o soap allergy and requesting gingerall Objective: 12/18/17 14:12 Vital Signs - 24 hr 12/18/17 12/18/17 00:30 03:30 Respiratory 18 18 Rate labs reviewed, no rash noted but will give soap Assessment: 12/18/17 14:12 aveeno soap and danita brodie ordered as per patietn request most likely pcontact dermatitis from soap
[2017-12-18] MEDS: ACETAMINOPHEN 325 MG TABLET (FP) PO PRN (14:17)
[2017-12-18] MEDS: THIAMINE HCL 100 MG TABLET (FP) PO SCH (21:19)
[2017-12-18] MEDS: lamoTRIgine 25 MG TABLET PO SCH (21:19)
[2017-12-18] MEDS: OLANZapine 5 MG TABLET PO SCH (21:20)
[2017-12-19] MEDS ORDERED: METHADONE HCL 10 MG TABLET ONE (08:56)
[2017-12-19] MEDS ORDERED: METHADONE HCL 5 MG TABLET ONE (08:56)
[2017-12-19] MEDS: PANTOPRAZOLE 40 MG TABLET (FP) PO SCH (09:45)
[2017-12-19] MEDS: PRENATAL VITAMINS W/ FOLIC ACID TABLET (FP) PO SCH (09:45)
[2017-12-19] MEDS: NAPROXEN 500 MG TABLET (FP) PO SCH ×2 (09:46→21:46)
[2017-12-19] MEDS: METHADONE 30 MG, METHADONE 5 MG PO SCH (09:46)
[2017-12-19] MEDS: SULFAMETHOXAZOLE/TRIMETHOPRIM 800MG/160MG D.S. TABLET PO SCH ×2 (09:46→21:46)
[2017-12-19] MEDS: NICOTINE 14 MG/24 HOURS TOPICAL PATCH TD SCH (09:46)
[2017-12-19] MEDS: THIAMINE HCL 100 MG TABLET (FP) PO SCH (21:46)
[2017-12-19] MEDS: OLANZapine 5 MG TABLET PO SCH (21:46)
[2017-12-19] MEDS: lamoTRIgine 25 MG TABLET PO SCH (21:46)
[2017-12-20] MEDS ORDERED: METHADONE HCL 5 MG TABLET ONE (08:39)
[2017-12-20] MEDS ORDERED: METHADONE HCL 10 MG TABLET ONE (08:39)
[2017-12-20] MEDS: METHADONE 30 MG, METHADONE 5 MG PO SCH (10:05)
[2017-12-20] MEDS: SULFAMETHOXAZOLE/TRIMETHOPRIM 800MG/160MG D.S. TABLET PO SCH ×2 (10:06→21:21)
[2017-12-20] MEDS: PRENATAL VITAMINS W/ FOLIC ACID TABLET (FP) PO SCH (10:06)
[2017-12-20] MEDS: PANTOPRAZOLE 40 MG TABLET (FP) PO SCH (10:06)
[2017-12-20] MEDS: NAPROXEN 500 MG TABLET (FP) PO SCH ×2 (10:06→21:21)
[2017-12-20] MEDS: NICOTINE 14 MG/24 HOURS TOPICAL PATCH TD SCH (10:09)
[2017-12-20] MEDS ORDERED: METHADONE HCL 10 MG TABLET PO SCH (15:26)
--- NOTE | 2017-12-20 15:34 | PN ---
S Progress Note (SOAP) Subjective: patient requesting suboxoen induction while in rehab as he will have more choice of facilities he can go to after discharge, has been on methadone 35mg with no withdrawal sx or craving noted by patietn was on 40mg prior to admission greater than 2 weeks. Objective: 12/20/17 15:34 Vital Signs - 24 hr 12/20/17 12/20/17 12/20/17 00:30 03:30 06:51 Temperature 97.6 F Pulse Rate 69 Respiratory 20 20 16 Rate Blood Pressure 95/63 labs revivewed Assessment: 12/20/17 15:34 oud on mat with methadone 35mg daily >2 weeks, will decrease dose to 15mg and assess for suboxone induction on monday as per patien request.
[2017-12-20] MEDS: lamoTRIgine 25 MG TABLET PO SCH (21:21)
[2017-12-20] MEDS: THIAMINE HCL 100 MG TABLET (FP) PO SCH (21:21)
[2017-12-20] MEDS: OLANZapine 5 MG TABLET PO SCH (21:22)
[2017-12-21] MEDS: PRENATAL VITAMINS W/ FOLIC ACID TABLET (FP) PO SCH (09:52)
[2017-12-21] MEDS: PANTOPRAZOLE 40 MG TABLET (FP) PO SCH (09:52)
[2017-12-21] MEDS: SULFAMETHOXAZOLE/TRIMETHOPRIM 800MG/160MG D.S. TABLET PO SCH ×2 (09:52→21:19)
[2017-12-21] MEDS: NAPROXEN 500 MG TABLET (FP) PO SCH ×2 (09:52→21:19)
[2017-12-21] MEDS ORDERED: METHADONE HCL 10 MG TABLET PO ONE (10:00)
[2017-12-21] MEDS: NICOTINE 14 MG/24 HOURS TOPICAL PATCH TD SCH (10:34)
--- NOTE | 2017-12-21 12:35 | PN ---
Psychiatric Progress Note Vital Signs: Vital Signs Period Temp Pulse Resp BP Sys/Martin Pulse Ox Last 24 Hr 98.2 F 56 18-20 115/58 Date of Session: 12/21/17 Chief Complaint:: "I would like to have my medications increased." HPI: Pt. with a history of cocaine, benzodiazepine, and alcohol dependence. ROS: Unremarkable. Current Medications: Active Medications Generic Name Dose Route Start Last Admin Trade Name Freq PRN Reason Stop Dose Admin Acetaminophen 650 mg 12/11/17 13:34 12/18/17 14:17 Tylenol - PO 650 mg Q4H PRN Administration FEVER Al Hydroxide/Mg Hydroxide 30 ml 12/11/17 13:34 Mylanta Oral Suspension - PO Q6H PRN DYSPEPSIA Albuterol Sulfate 2 puff 12/11/17 13:35 Ventolin Hfa Inhaler - IH Q4H PRN ASTHMA Buspirone HCl 15 mg 12/11/17 22:00 12/21/17 09:52 Buspar - PO 15 mg BID LEANN Administration Colloidal Oatmeal 1 applic 12/11/17 15:17 12/18/17 14:18 Aveeno Soap - TP 1 bar DAILY PRN Administration HYGEINE Colloidal Oatmeal 1 applic 12/18/17 14:11 Aveeno Soap - TP DAILY PRN HYGEINE Eucalyptus/Menthol/Phenol/Sorbitol 1 each 12/11/17 13:34 Cepastat Lozenge - MM Q4H PRN SORE THROAT Guaifenesin 10 ml 12/11/17 13:34 Robitussin Dm - PO Q6H PRN COUGH Hydroxyzine Pamoate 50 mg 12/11/17 13:34 Vistaril - PO Q4H PRN AGITATION Lamotrigine 25 mg 12/11/17 22:00 12/20/17 21:21 Lamictal - PO 25 mg HS LEANN Administration Loperamide HCl 4 mg 12/11/17 13:34 Imodium - PO Q6H PRN DIARRHEA Magnesium Citrate 300 ml 12/11/17 13:34 Citroma - PO Q48H PRN CONSTIPATION Magnesium Hydroxide 30 ml 12/11/17 13:34 Milk Of Magnesia - PO DAILY PRN CONSTIPATION Methadone HCl 20 mg 12/23/17 10:00 Dolophine - PO 12/23/17 10:01 ONCE ONE Methadone HCl 15 mg 12/24/17 10:00 Dolophine - PO 12/24/17 10:01 ONCE ONE Methadone HCl 20 mg/ Methadone 25 mg 12/22/17 10:00 HCl 5 mg PO 12/22/17 10:01 ONCE ONE Naproxen 500 mg 12/12/17 22:00 12/21/17 09:52 Naprosyn - PO 500 mg BID LEANN Administration Nicotine 14 mg 12/12/17 10:00 12/21/17 10:34 Nicoderm Patch - TD Not Given DAILY LEANN Nicotine Polacrilex 2 mg 12/11/17 13:34 12/15/17 13:24 Nicorette Gum - BUC 2 mg Q2H PRN Administration NICOTINE REPLACEMENT RX Olanzapine 5 mg 12/11/17 22:00 12/20/17 21:22 Zyprexa - PO Not Given HS LEANN Pantoprazole Sodium 40 mg 12/14/17 10:00 12/21/17 09:52 Protonix - PO 40 mg DAILY LEANN Administration Multivit/Folic Acid/Iron 1 tab 12/12/17 10:00 12/21/17 09:52 Vitamins (Sjr) - PO 1 tab DAILY LEANN Administration Pseudoephedrine/Triprolidine 1 combo 12/11/17 13:34 Actifed - PO TID PRN NASAL CONGESTION Thiamine HCl 100 mg 12/11/17 22:00 12/20/17 21:21 Vitamin B1 - PO 100 mg HS LEANN Administration Trimethoprim/Sulfamethoxazole 1 each 12/12/17 22:00 12/21/17 09:52 Bactrim Ds - PO 1 each BID LEANN Administration Medication(s) Change(s): Yes. Lamicatal to be increased from 25mg PO daily to 25mg BID. Zyprexa increased from 5mg to 7.5mg qhs. Current Side Effect: No Lab tests ordered: No Lab tests reviewed: Yes Provider note:: [employer] met with patient in reference for his request for a psychiatric follow up. Pt. requesting medication increased in both his lamictal and zyprexa. Chart reviewed. Pharmacy claims reviewed. Pt. was given prescription of lamictal 50mg BID and Zyprexa 10mg qhs on 11/29/17. Pt. has tolerated lamictal 25mg PO daily and zyprexa 5mg for ten days. Will increase zyprexa to 7.5mg qhs. At this time lamictal will be held until patient has taken lamictal 25mg PO daily for approximately for two weeks. Pt. agreeable with plan. Benefits and side effects discussed. Verbal consent given. Total face to face time:: 25 Mental Status Exam - Mental Status Exam Alert and Oriented to: Time, Place, Person Cognitive Function: Good Patient Appearance: Well Groomed Mood: Hopeful Affect: Appropriate Patient Behavior: Appropriate, Cooperative Speech Pattern: Clear, Appropriate Voice Loudness: Normal Thought Process: Goal Oriented Thought Disorder: Not Present Hallucinations: Denies Suicidal Ideation: Denies Homicidal Ideation: Denies Insight/Judgement: Fair Sleep: Fair Appetite: Good Muscle strength/Tone: Normal Gait/Station: Normal Psychiatric Treatment Plan - Problem List (1) Alcohol dependence Current Visit: Yes (2) Cocaine dependence Current Visit: No Qualifiers: Substance use status: uncomplicated Qualified Code(s): F14.20 - Cocaine dependence, uncomplicated (3) Nicotine dependence Current Visit: No Qualifiers: Nicotine product type: cigarettes Substance use status: uncomplicated Qualified Code(s): F17.210 - Nicotine dependence, cigarettes, uncomplicated (4) Bipolar disorder Current Visit: Yes Comment: Self reports. (5) PTSD (post-traumatic stress disorder) Current Visit: Yes Comment: Self reports.
[2017-12-21] MEDS: THIAMINE HCL 100 MG TABLET (FP) PO SCH (21:19)
[2017-12-21] MEDS: lamoTRIgine 25 MG TABLET PO SCH (21:19)
[2017-12-21] MEDS: OLANZapine 7.5 MG TABLET PO SCH (22:00)
[2017-12-22] MEDS: NAPROXEN 500 MG TABLET (FP) PO SCH ×2 (09:51→21:30)
[2017-12-22] MEDS: SULFAMETHOXAZOLE/TRIMETHOPRIM 800MG/160MG D.S. TABLET PO SCH ×2 (09:51→21:29)
[2017-12-22] MEDS: PANTOPRAZOLE 40 MG TABLET (FP) PO SCH (09:51)
[2017-12-22] MEDS ORDERED: METHADONE HCL 10 MG TABLET ONE (09:52)
[2017-12-22] MEDS: PRENATAL VITAMINS W/ FOLIC ACID TABLET (FP) PO SCH (09:52)
[2017-12-22] MEDS ORDERED: METHADONE HCL 5 MG TABLET ONE (09:53)
[2017-12-22] MEDS: NICOTINE 14 MG/24 HOURS TOPICAL PATCH TD SCH (09:55)
[2017-12-22] MEDS ORDERED: METHADONE 20 MG, METHADONE 5 MG PO ONE (10:00)
--- NOTE | 2017-12-22 13:41 | PN ---
[facility] Progress Note (SOAP) Subjective: feeling some withdrawal sx, asked if he should take monday dose, advised to take monday dose Objective: 12/22/17 13:40 Vital Signs - 24 hr 12/22/17 12/22/17 12/22/17 00:30 03:30 07:08 Temperature 98.3 F Pulse Rate 73 Respiratory 16 16 18 Rate Blood Pressure 109/79 labs reveiwed Assessment: 12/22/17 13:40 OUD on [facility] detox now for subxone induction to take place on Monday, rreporting withdrawal sx so should be good to go should take all methadone oredered over the weekend.
[2017-12-22] MEDS ORDERED: METHADONE HCL 10 MG TABLET PO ONE (15:30)
[2017-12-22] MEDS: THIAMINE HCL 100 MG TABLET (FP) PO SCH (21:29)
[2017-12-22] MEDS: OLANZapine 7.5 MG TABLET PO SCH (21:29)
[2017-12-22] MEDS: lamoTRIgine 25 MG TABLET PO SCH (21:29)
[2017-12-23] MEDS: SULFAMETHOXAZOLE/TRIMETHOPRIM 800MG/160MG D.S. TABLET PO SCH ×2 (09:57→21:31)
[2017-12-23] MEDS: NICOTINE 14 MG/24 HOURS TOPICAL PATCH TD SCH (09:57)
[2017-12-23] MEDS: PRENATAL VITAMINS W/ FOLIC ACID TABLET (FP) PO SCH (09:58)
[2017-12-23] MEDS: NAPROXEN 500 MG TABLET (FP) PO SCH ×2 (09:58→21:31)
[2017-12-23] MEDS: PANTOPRAZOLE 40 MG TABLET (FP) PO SCH (09:58)
[2017-12-23] MEDS ORDERED: METHADONE HCL 10 MG TABLET PO ONE (10:00)
[2017-12-23] MEDS: lamoTRIgine 25 MG TABLET PO SCH (21:31)
[2017-12-23] MEDS: THIAMINE HCL 100 MG TABLET (FP) PO SCH (21:31)
[2017-12-23] MEDS: OLANZapine 7.5 MG TABLET PO SCH (22:23)
[2017-12-24] MEDS: PRENATAL VITAMINS W/ FOLIC ACID TABLET (FP) PO SCH (09:25)
[2017-12-24] MEDS: SULFAMETHOXAZOLE/TRIMETHOPRIM 800MG/160MG D.S. TABLET PO SCH ×2 (09:25→21:31)
[2017-12-24] MEDS: NAPROXEN 500 MG TABLET (FP) PO SCH ×2 (09:25→21:31)
[2017-12-24] MEDS: PANTOPRAZOLE 40 MG TABLET (FP) PO SCH (09:25)
[2017-12-24] MEDS: NICOTINE 14 MG/24 HOURS TOPICAL PATCH TD SCH (09:25)
[2017-12-24] MEDS ORDERED: METHADONE HCL 5 MG TABLET PO ONE (10:00)
--- NOTE | 2017-12-24 11:48 | PN ---
[facility] Progress Note (SOAP) Subjective: c/o opioid withdrawwal sx after rapid methadone detox , relieved by methadone dose today. wants t0 start suboxone induction in am Objective: 12/24/17 11:46 Vital Signs - 24 hr 12/24/17 12/24/17 12/24/17 00:30 03:30 10:00 Temperature 98.6 F Pulse Rate 99 H Respiratory 16 18 18 Rate Blood Pressure 106/76 labs reviewed, lfts wnl Assessment: 12/24/17 11:46 OUD on [facility] will d/c methadone in am and start suboxone induction w 2mg x1 dose at 10am. if toleratted can take 4mg x1 dose at 6PM, then start 8mg dsuboxone daily at 10 Am prioto discharge. this will give him more choice of rehab after care facilitites and he was on a low methadone dose on the [facility] patietn aware of risks and beneits and side effects including precipitated withdrawl.
[2017-12-24] MEDS: lamoTRIgine 25 MG TABLET PO SCH (21:31)
[2017-12-24] MEDS: THIAMINE HCL 100 MG TABLET (FP) PO SCH (21:31)
[2017-12-24] MEDS: OLANZapine 7.5 MG TABLET PO SCH (21:33)
[2017-12-25] MEDS: PRENATAL VITAMINS W/ FOLIC ACID TABLET (FP) PO SCH (09:52)
[2017-12-25] MEDS: SULFAMETHOXAZOLE/TRIMETHOPRIM 800MG/160MG D.S. TABLET PO SCH ×2 (09:52→21:19)
[2017-12-25] MEDS: NAPROXEN 500 MG TABLET (FP) PO SCH ×2 (09:52→21:19)
[2017-12-25] MEDS: PANTOPRAZOLE 40 MG TABLET (FP) PO SCH (09:52)
[2017-12-25] MEDS: NICOTINE 14 MG/24 HOURS TOPICAL PATCH TD SCH (09:53)
[2017-12-25] MEDS ORDERED: BUPRENORPHINE/NALOXONE 2 MG/0.5 MG FILM PACKET SL ONE ×4 (10:00→18:00)
[2017-12-25] MEDS: ACETAMINOPHEN 325 MG TABLET (FP) PO PRN (11:30)
--- NOTE | 2017-12-25 12:56 | PN ---
S Progress Note Note: suboxone induction today. Patient reports no withdrawal symptoms and tolerating medication well. Vital Signs Temperature 98.6 F 12/24/17 10:00 Pulse Rate 98 H 12/25/17 10:00 Respiratory Rate 12/25/17 10:00 Blood Pressure 137/79 12/25/17 10:00 O2 Sat by Pulse Oximetry (%) Patient in no apparent distress, AOx3 , ambulating in the unit. Continue to monitor
[2017-12-25] MEDS: lamoTRIgine 25 MG TABLET PO SCH (21:19)
[2017-12-25] MEDS: THIAMINE HCL 100 MG TABLET (FP) PO SCH (21:19)
[2017-12-25] MEDS: OLANZapine 7.5 MG TABLET PO SCH (21:20)
[2017-12-26] MEDS: OLANZapine 7.5 MG TABLET PO SCH ×2 (00:13→21:31)
[2017-12-26] MEDS: BUPRENORPHINE/NALOXONE 8 MG/2 MG FILM PACKET SL SCH (09:47)
[2017-12-26] MEDS: PRENATAL VITAMINS W/ FOLIC ACID TABLET (FP) PO SCH (09:47)
[2017-12-26] MEDS: NAPROXEN 500 MG TABLET (FP) PO SCH ×2 (09:47→21:31)
[2017-12-26] MEDS: PANTOPRAZOLE 40 MG TABLET (FP) PO SCH (09:47)
[2017-12-26] MEDS: SULFAMETHOXAZOLE/TRIMETHOPRIM 800MG/160MG D.S. TABLET PO SCH ×2 (09:47→21:31)
[2017-12-26] MEDS: NICOTINE 14 MG/24 HOURS TOPICAL PATCH TD SCH (09:49)
[2017-12-26] MEDS: ACETAMINOPHEN 325 MG TABLET (FP) PO PRN (15:15)
[2017-12-26] MEDS: lamoTRIgine 25 MG TABLET PO SCH (21:31)
[2017-12-26] MEDS: THIAMINE HCL 100 MG TABLET (FP) PO SCH (21:31)
[2017-12-27] MEDS: BUPRENORPHINE/NALOXONE 8 MG/2 MG FILM PACKET SL SCH (09:53)
[2017-12-27] MEDS: SULFAMETHOXAZOLE/TRIMETHOPRIM 800MG/160MG D.S. TABLET PO SCH ×2 (09:53→21:22)
[2017-12-27] MEDS: PRENATAL VITAMINS W/ FOLIC ACID TABLET (FP) PO SCH (09:53)
[2017-12-27] MEDS: NAPROXEN 500 MG TABLET (FP) PO SCH ×2 (09:53→21:22)
[2017-12-27] MEDS: NICOTINE 14 MG/24 HOURS TOPICAL PATCH TD SCH (09:53)
[2017-12-27] MEDS: PANTOPRAZOLE 40 MG TABLET (FP) PO SCH (09:53)
[2017-12-27] MEDS: ACETAMINOPHEN 325 MG TABLET (FP) PO PRN ×2 (10:38→17:05)
[2017-12-27] MEDS: THIAMINE HCL 100 MG TABLET (FP) PO SCH (21:22)
[2017-12-27] MEDS: lamoTRIgine 25 MG TABLET PO SCH (21:22)
[2017-12-27] MEDS: OLANZapine 7.5 MG TABLET PO SCH (21:22)
[2017-12-28 06:53] VITALS: BP 101/67; PULSE 92; TEMP 98.2
--- NOTE | 2017-12-28 09:44 | PN ---
[facility] Progress Note Note: Patient has completed this program today after meeting his expected treatment goals. He was referred to [facility] and [facility] as alternate in order to continue to address his issues. Scripts for 30 days supply for Lamictal 25 mg po BID, Buspar 15 mg po BID and Zyprexa 7.5 mg po HS were electronically transmitted to [facility] at [address] [place] [phone]. He was stable for discharge. See nursing staff note for further information
== END 2017-12-28 08:10 | disposition home or self-care (01) | DRG 772 ==
LOC: YASAS 11:34 → Y3W 11:37
PROVIDERS: ADMIT Psychiatry & Neurology Psychiatry; ATTEND Psychiatry & Neurology Psychiatry
PROC: HZ42ZZZ Group Counseling for Substance Abuse Treatment, Cognitive-Behavioral (ICD-10-PCS; principal; 2017-12-11)
DX: F10.20 Alcohol dependence, uncomplicated (principal); F11.23 Opioid dependence with withdrawal; F14.20 Cocaine dependence, uncomplicated; F17.210 Nicotine dependence, cigarettes, uncomplicated; F31.9 Bipolar disorder, unspecified; F43.10 Post-traumatic stress disorder, unspecified; F19.24 Other psychoactive substance dependence with psychoactive substance-induced mood disorder; J45.909 Unspecified asthma, uncomplicated; L03.113 Cellulitis of right upper limb; R01.1 Cardiac murmur, unspecified; B18.2 Chronic viral hepatitis C; L25.9 Unspecified contact dermatitis, unspecified cause; Z88.0 Allergy status to penicillin; Z91.012 Allergy to eggs

== ENCOUNTER 2022-05-04 11:41 | Inpatient (IN) | payer OTHER ==
[2022-05-04 12:39] VITALS: BMI 20.9
[2022-05-04] MEDS ORDERED: NALOXONE HCL (KLOXXADO) 8 MG SPRAY NS PRN (12:53)
[2022-05-04] MEDS ORDERED: DICYCLOMINE HCL 10 MG CAPSULE PO PRN (12:53)
[2022-05-04] MEDS ORDERED: MAG HYDROX/AL HYDROX/SIMETH 30 ML UNIT-DOSE CUP PO PRN (12:53)
[2022-05-04] MEDS ORDERED: NICOTINE 10 MG CARTRIDGE (INHALER) IH PRN (12:53)
[2022-05-04] MEDS ORDERED: IBUPROFEN 400 MG TABLET (FP) PO PRN (12:53)
[2022-05-04] MEDS ORDERED: MAGNESIUM HYDROX 2400MG/30ML ORAL SUSPENSION 30 ML CUP PO PRN (12:53)
[2022-05-04] MEDS ORDERED: IBUPROFEN 600 MG TABLET (FP) PO PRN (12:53)
[2022-05-04] MEDS ORDERED: LOPERAMIDE HCL 2 MG CAPSULE PO PRN (12:53)
[2022-05-04] MEDS ORDERED: ACETAMINOPHEN 325 MG TABLET (FP) PO PRN ×2 (12:53)
[2022-05-04] MEDS ORDERED: BISMUTH SUBSALICYLATE 262 MG/15 ML BTL PO PRN (12:53)
[2022-05-04] MEDS ORDERED: ONDANSETRON *ODT* 4 MG TABLET SL PRN (12:53)
[2022-05-04] MEDS ORDERED: BENZOCAINE/MENTHOL (CHLORASEPTIC ) LOZENGE MM PRN (12:53)
[2022-05-04] MEDS ORDERED: METHOCARBAMOL 500 MG TABLET PO PRN (12:53)
[2022-05-04] MEDS ORDERED: MAGNESIUM CITRATE 300 ML BOTTLE PO PRN (12:53)
[2022-05-04] MEDS ORDERED: NICOTINE POLACRILEX 2 MG GUM BUC PRN (12:53)
[2022-05-04] MEDS ORDERED: cloNIDine HCL 0.1 MG TABLET PO PRN (12:53)
[2022-05-04] MEDS ORDERED: methaDONE HCL 10 MG TABLET (FOR DETOX USE ONLY) PO ONE (12:53)
[2022-05-04] MEDS: PRENATAL VITAMINS W/ FOLIC ACID TABLET (FP) PO SCH (14:09)
[2022-05-04] MEDS: hydrOXYzine PAMOATE 25 MG CAPSULE (FP) PO SCH ×3 (14:12→23:07)
[2022-05-04] MEDS: THIAMINE HCL 100 MG TABLET (FP) PO SCH (23:07)
[2022-05-04] MEDS: MELATONIN 5 MG TABLETS PO SCH (23:07)
[2022-05-05] MEDS: hydrOXYzine PAMOATE 25 MG CAPSULE (FP) PO SCH ×5 (07:27→23:26)
[2022-05-05] MEDS ORDERED: methaDONE HCL 10 MG TABLET (FOR DETOX USE ONLY) ONE (09:10)
[2022-05-05] MEDS: PRENATAL VITAMINS W/ FOLIC ACID TABLET (FP) PO SCH (10:25)
[2022-05-05 14:27] LABS: HEMATOCRIT 36.4 % (35.4-49); HEMOGLOBIN 12.4 GM/dL (11.7-16.9); MCH 28.5 pg (25.7-33.7); MCHC 34.2 g/dl (32.0-35.9); MEAN CELL VOLUME 83.5 fl (80-96); MEAN PLT VOLUME 7.8 fl (7.5-11.1); PLATELET COUNT 174 10^3/uL (134-434); RBC 4.36 M/mm3 (4.00-5.60); RDW 14.7 % (11.9-15.9); WHITE BLOOD COUNT 3.3 K/mm3 (4.0-10.0)
[2022-05-05 14:43] LABS: BLOOD UREA NITROGEN 20.3 mg/dL (7-18)
[2022-05-05 14:44] LABS: ALBUMIN 3.5 g/dl (3.4-5.0); CALCIUM 9.2 mg/dL (8.5-10.1)
[2022-05-05 14:49] LABS: BILIRUBIN,TOTAL 0.3 mg/dL (0.2-1); TOT PROT 7.1 g/dl (6.4-8.2)
[2022-05-05] MEDS: diazePAM 5 MG TABLET PO PRN (15:07)
[2022-05-05] MEDS: MELATONIN 5 MG TABLETS PO SCH (23:25)
[2022-05-05] MEDS: THIAMINE HCL 100 MG TABLET (FP) PO SCH (23:26)
[2022-05-06] MEDS: hydrOXYzine PAMOATE 25 MG CAPSULE (FP) PO SCH ×5 (07:04→22:32)
[2022-05-06] MEDS ORDERED: methaDONE HCL 10 MG TABLET (FOR DETOX USE ONLY) PO ONE (10:00)
[2022-05-06] MEDS: PRENATAL VITAMINS W/ FOLIC ACID TABLET (FP) PO SCH (10:22)
[2022-05-06] MEDS: diazePAM 5 MG TABLET PO PRN (10:25)
[2022-05-06] MEDS: MELATONIN 5 MG TABLETS PO SCH (22:32)
[2022-05-06] MEDS: THIAMINE HCL 100 MG TABLET (FP) PO SCH (22:32)
[2022-05-07] MEDS: hydrOXYzine PAMOATE 25 MG CAPSULE (FP) PO SCH ×2 (06:25→10:10)
[2022-05-07] MEDS ORDERED: methaDONE HCL 10 MG TABLET (FOR DETOX USE ONLY) ONE (09:04)
[2022-05-07 09:25] VITALS: BP 100/60; PULSE 58; TEMP 98.7
[2022-05-07] MEDS: PRENATAL VITAMINS W/ FOLIC ACID TABLET (FP) PO SCH (10:10)
[2022-05-07] MEDS: diazePAM 5 MG TABLET PO PRN (10:11)
[2022-05-08] MEDS ORDERED: methaDONE HCL 10 MG TABLET (FOR DETOX USE ONLY) PO ONE (10:00)
== END 2022-05-07 11:20 | disposition left against medical advice (07) | DRG 770 ==
LOC: YASAS 11:41 → Y3N 13:44
PROVIDERS: ADMIT Allergy & Immunology; ATTEND Surgery
PROC: HZ2ZZZZ Detoxification Services for Substance Abuse Treatment (ICD-10-PCS; principal; 2022-05-04)
DX: F11.23 Opioid dependence with withdrawal (principal); F14.20 Cocaine dependence, uncomplicated; F10.10 Alcohol abuse, uncomplicated; F17.210 Nicotine dependence, cigarettes, uncomplicated; F43.10 Post-traumatic stress disorder, unspecified; B18.2 Chronic viral hepatitis C; J45.20 Mild intermittent asthma, uncomplicated; M41.9 Scoliosis, unspecified; Z88.0 Allergy status to penicillin; Z91.012 Allergy to eggs; Z91.018 Allergy to other foods
CPT/HCPCS: 36415; 80053; 85027; 86780; C9803-CS; U0003; U0005

== ENCOUNTER 2022-07-04 18:18 | Emergency (ER) | payer OTHER ==
[2022-07-04 18:41] VITALS: BP 134/93; RESP 18; TEMP 98.6; BMI 19.0
[2022-07-04 20:18] LABS: BASO % 0.3 % (0-2.0); HEMATOCRIT 40.2 % (35.4-49); HEMOGLOBIN 13.3 GM/dL (11.7-16.9); LYMPH % 8.9 % (8-40); MCH 28.5 pg (25.7-33.7); MCHC 33.2 g/dl (32.0-35.9); MEAN PLT VOLUME 8.1 fl (7.5-11.1); MONO % 12.9 % (3.8-10.2); NEUT % 77.9 % (42.8-82.8); PLATELET COUNT 151 10^3/uL (134-434); RBC 4.68 M/mm3 (4.00-5.60); RDW 14.6 % (11.9-15.9); WHITE BLOOD COUNT 6.8 K/mm3 (4.0-10.0)
[2022-07-04] MEDS ORDERED: SODIUM CHLORIDE 0.9% 500 ML INFUS.BAG IV ONE ×2 (20:20→20:38)
[2022-07-04 20:26] LABS: CHLORIDE 105 mmol/L (98-107); SODIUM 138 mmol/L (136-145)
[2022-07-04 20:28] LABS: ANION GAP 10 MMOL/L (8-16); BLOOD UREA NITROGEN 17.9 mg/dL (7-18); CALCIUM 8.9 mg/dL (8.5-10.1); CO2 23 mmol/L (21-32); GLUCOSE,RANDOM 104 mg/dL (74-106)
[2022-07-04 20:29] LABS: ALBUMIN 4.2 g/dl (3.4-5.0)
[2022-07-04 20:31] LABS: CREATININE 1.2 mg/dL (0.55-1.3); SGPT/ALT 36 U/L (13-61)
[2022-07-04 20:32] LABS: SGOT/AST 40 U/L (15-37)
[2022-07-04 20:33] LABS: BILIRUBIN,TOTAL 0.3 mg/dL (0.2-1)
[2022-07-04 20:34] LABS: ALK PHOS 91 U/L (45-117)
[2022-07-04] MEDS ORDERED: ACETAMINOPHEN 1000 MG/100 ML BAG IVPB ONE (20:38)
[2022-07-04] MEDS ORDERED: ACETAMINOPHEN INJECTION 100 ML IVPB ONE (20:40)
[2022-07-04 21:03] LABS: METHADONE, UR NEGATIVE (NEGATIVE); PHENCYCLIDINE,URINE NEGATIVE (NEGATIVE); URINE AMPHETAMINES NEGATIVE (NEGATIVE); URINE BARBITURATES NEGATIVE (NEGATIVE); URINE BENZODIAZEPINES NEGATIVE (NEGATIVE)
[2022-07-04 21:06] LABS: COCAINE, UR POSITIVE (NEGATIVE); OPIATES, URI POSITIVE (NEGATIVE)
[2022-07-04 22:19] VITALS: PULSE 88
[2022-07-04] MEDS ORDERED: IBUPROFEN 400 MG TABLET (FP) PO ONE ×2 (23:04→23:08)
== END 2022-07-04 23:15 | disposition home or self-care (01) ==
LOC: JER 18:18
PROC: 3E0333Z Introduction of Anti-inflammatory into Peripheral Vein, Percutaneous Approach (ICD-10-PCS; principal; 2022-07-04)
DX: T40.2X1A Poisoning by other opioids, accidental (unintentional), initial encounter (principal)
CPT/HCPCS: 36415; 80053; 80307; 85025; 93005; 93010; 99284-25

== ENCOUNTER 2022-07-27 08:40 | Inpatient (IN) | payer OTHER ==
[2022-07-27 10:38] VITALS: BMI 22.5
[2022-07-27] MEDS ORDERED: MAG HYDROX/AL HYDROX/SIMETH 30 ML UNIT-DOSE CUP PO PRN (11:30)
[2022-07-27] MEDS ORDERED: ONDANSETRON *ODT* 4 MG TABLET SL PRN (11:30)
[2022-07-27] MEDS ORDERED: NALOXONE HCL (KLOXXADO) 8 MG SPRAY NS PRN (11:30)
[2022-07-27] MEDS ORDERED: MAGNESIUM CITRATE 300 ML BOTTLE PO PRN (11:30)
[2022-07-27] MEDS ORDERED: METHOCARBAMOL 500 MG TABLET PO PRN (11:30)
[2022-07-27] MEDS ORDERED: BISMUTH SUBSALICYLATE 262 MG/15 ML BTL PO PRN (11:30)
[2022-07-27] MEDS ORDERED: LOPERAMIDE HCL 2 MG CAPSULE PO PRN (11:30)
[2022-07-27] MEDS ORDERED: MAGNESIUM HYDROX 2400MG/30ML ORAL SUSPENSION 30 ML CUP PO PRN (11:30)
[2022-07-27] MEDS ORDERED: BENZOCAINE/MENTHOL (CHLORASEPTIC ) LOZENGE MM PRN (11:30)
[2022-07-27] MEDS ORDERED: DICYCLOMINE HCL 10 MG CAPSULE PO PRN (11:30)
[2022-07-27] MEDS ORDERED: ACETAMINOPHEN 325 MG TABLET (FP) PO PRN (11:30)
[2022-07-27] MEDS ORDERED: IBUPROFEN 400 MG TABLET (FP) PO PRN (11:30)
[2022-07-27] MEDS ORDERED: NICOTINE 10 MG CARTRIDGE (INHALER) IH PRN (11:30)
[2022-07-27] MEDS ORDERED: NICOTINE POLACRILEX 2 MG GUM BUC PRN (11:30)
[2022-07-27] MEDS: PRENATAL VITAMINS W/ FOLIC ACID TABLET (FP) PO SCH (12:09)
[2022-07-27] MEDS: ACETAMINOPHEN 325 MG TABLET (FP) PO PRN (12:13)
[2022-07-27] MEDS: hydrOXYzine PAMOATE 25 MG CAPSULE (FP) PO SCH ×3 (14:52→23:13)
[2022-07-27 16:56] LABS: HEMOGLOBIN 13.4 GM/dL (11.7-16.9); MCH 28.3 pg (25.7-33.7); MCHC 33.4 g/dl (32.0-35.9); MEAN CELL VOLUME 84.7 fl (80-96); MEAN PLT VOLUME 8.6 fl (7.5-11.1); PLATELET COUNT 187 10^3/uL (134-434); RBC 4.72 M/mm3 (4.00-5.60); RDW 14.7 % (11.9-15.9)
[2022-07-27 16:57] LABS: ALBUMIN 3.8 g/dl (3.4-5.0); BLOOD UREA NITROGEN 16.5 mg/dL (7-18)
[2022-07-27 17:00] LABS: CREATININE 0.8 mg/dL (0.55-1.3)
[2022-07-27 17:02] LABS: BILIRUBIN,TOTAL 0.3 mg/dL (0.2-1); TOT PROT 7.6 g/dl (6.4-8.2)
[2022-07-27] MEDS: THIAMINE HCL 100 MG TABLET (FP) PO SCH (23:13)
[2022-07-27] MEDS: MELATONIN 5 MG TABLETS PO SCH (23:13)
[2022-07-28] MEDS: hydrOXYzine PAMOATE 25 MG CAPSULE (FP) PO SCH ×5 (05:45→22:25)
[2022-07-28] MEDS ORDERED: cloNIDine HCL 0.1 MG TABLET PO PRN (08:56)
[2022-07-28] MEDS ORDERED: methaDONE HCL 10 MG TABLET (FOR DETOX USE ONLY) PO ONE (08:56)
[2022-07-28] MEDS: PRENATAL VITAMINS W/ FOLIC ACID TABLET (FP) PO SCH (10:34)
[2022-07-28] MEDS: ACETAMINOPHEN 325 MG TABLET (FP) PO PRN (12:24)
[2022-07-28] MEDS: THIAMINE HCL 100 MG TABLET (FP) PO SCH (22:25)
[2022-07-28] MEDS: MELATONIN 5 MG TABLETS PO SCH (22:26)
[2022-07-28] MEDS: IBUPROFEN 600 MG TABLET (FP) PO PRN (23:10)
[2022-07-29] MEDS: hydrOXYzine PAMOATE 25 MG CAPSULE (FP) PO SCH ×2 (06:28→10:38)
[2022-07-29] MEDS: IBUPROFEN 600 MG TABLET (FP) PO PRN (09:16)
[2022-07-29 09:41] VITALS: BP 106/74; PULSE 81; RESP 17; TEMP 98
[2022-07-29] MEDS: PRENATAL VITAMINS W/ FOLIC ACID TABLET (FP) PO SCH (10:38)
[2022-07-30] MEDS ORDERED: methaDONE HCL 10 MG TABLET (FOR DETOX USE ONLY) PO ONE (10:00)
== END 2022-07-29 12:35 | disposition left against medical advice (07) | DRG 770 ==
LOC: YASAS 08:40 → Y6N 11:46
PROVIDERS: ADMIT Allergy & Immunology; ATTEND Surgery
PROC: HZ2ZZZZ Detoxification Services for Substance Abuse Treatment (ICD-10-PCS; principal; 2022-07-27)
DX: F11.23 Opioid dependence with withdrawal (principal); F14.20 Cocaine dependence, uncomplicated; F17.210 Nicotine dependence, cigarettes, uncomplicated; F31.9 Bipolar disorder, unspecified; F41.9 Anxiety disorder, unspecified; F43.10 Post-traumatic stress disorder, unspecified; Z86.19 Personal history of other infectious and parasitic diseases; Z88.0 Allergy status to penicillin; Z91.012 Allergy to eggs; Z91.014 Allergy to mammalian meats
CPT/HCPCS: 36415; 80053; 85027; 86780; C9803-CS; U0003; U0005

== ENCOUNTER 2022-10-09 08:24 | Inpatient (IN) | payer OTHER ==
[2022-10-09 09:16] VITALS: BMI 21.7
[2022-10-09] MEDS ORDERED: IBUPROFEN 600 MG TABLET (FP) PO PRN (09:29)
[2022-10-09] MEDS ORDERED: cloNIDine HCL 0.1 MG TABLET PO PRN (09:29)
[2022-10-09] MEDS ORDERED: BISMUTH SUBSALICYLATE 524 MG/30 ML PO PRN (09:29)
[2022-10-09] MEDS ORDERED: NICOTINE 10 MG CARTRIDGE (INHALER) IH PRN (09:29)
[2022-10-09] MEDS ORDERED: chlordiazePOXIDE HCL 25 MG CAPSULE PO PRN (09:29)
[2022-10-09] MEDS ORDERED: MAGNESIUM HYDROX 2400MG/30ML ORAL SUSPENSION 30 ML CUP PO PRN (09:29)
[2022-10-09] MEDS ORDERED: LOPERAMIDE HCL 2 MG CAPSULE PO PRN (09:29)
[2022-10-09] MEDS ORDERED: IBUPROFEN 400 MG TABLET (FP) PO PRN (09:29)
[2022-10-09] MEDS ORDERED: MAG HYDROX/AL HYDROX/SIMETH 30 ML UNIT-DOSE CUP PO PRN (09:29)
[2022-10-09] MEDS ORDERED: methaDONE HCL 10 MG TABLET (FOR DETOX USE ONLY) PO ONE (09:29)
[2022-10-09] MEDS ORDERED: BENZOCAINE/MENTHOL (CHLORASEPTIC ) LOZENGE MM PRN (09:29)
[2022-10-09] MEDS ORDERED: ACETAMINOPHEN 325 MG TABLET (FP) PO PRN ×2 (09:29)
[2022-10-09] MEDS ORDERED: DICYCLOMINE HCL 10 MG CAPSULE PO PRN (09:29)
[2022-10-09] MEDS ORDERED: POLYETHYLENE GLYCOL (HEALTHYLAX) 3350 17 GM PACKET PO PRN (09:29)
[2022-10-09] MEDS ORDERED: NALOXONE HCL (KLOXXADO) 8 MG SPRAY NS PRN (09:29)
[2022-10-09] MEDS: chlordiazePOXIDE HCL 25 MG CAPSULE PO SCH ×3 (11:14→22:31)
[2022-10-09] MEDS: PRENATAL VITAMINS W/ FOLIC ACID TABLET (FP) PO SCH (11:17)
[2022-10-09] MEDS: THIAMINE HCL 100 MG TABLET (FP) PO SCH (22:31)
[2022-10-09] MEDS: MELATONIN 5 MG TABLETS PO SCH (22:31)
[2022-10-10] MEDS: chlordiazePOXIDE HCL 25 MG CAPSULE PO SCH ×4 (06:43→22:18)
[2022-10-10] MEDS: METHOCARBAMOL 500 MG TABLET PO PRN ×2 (10:13→22:17)
[2022-10-10] MEDS: PRENATAL VITAMINS W/ FOLIC ACID TABLET (FP) PO SCH (10:17)
[2022-10-10 10:31] LABS: HEMATOCRIT 37.6 % (35.4-49); HEMOGLOBIN 12.4 GM/dL (11.7-16.9); MCH 27.9 pg (25.7-33.7); MEAN CELL VOLUME 84.7 fl (80-96); MEAN PLT VOLUME 8.3 fl (7.5-11.1); PLATELET COUNT 177 10^3/uL (134-434); RBC 4.44 M/mm3 (4.00-5.60); RDW 15.8 % (11.9-15.9); WHITE BLOOD COUNT 3.4 K/mm3 (4.0-10.0)
[2022-10-10 11:20] LABS: ALBUMIN 3.3 g/dl (3.4-5.0)
[2022-10-10 11:24] LABS: BLOOD UREA NITROGEN 13.2 mg/dL (7-18)
[2022-10-10 11:26] LABS: CREATININE 0.7 mg/dL (0.55-1.3)
[2022-10-10 11:28] LABS: BILIRUBIN,TOTAL 0.5 mg/dL (0.2-1); TOT PROT 6.2 g/dl (6.4-8.2)
[2022-10-10] MEDS: MELATONIN 5 MG TABLETS PO SCH (22:17)
[2022-10-10] MEDS: THIAMINE HCL 100 MG TABLET (FP) PO SCH (22:18)
[2022-10-11] MEDS: chlordiazePOXIDE HCL 25 MG CAPSULE PO SCH ×4 (06:13→22:25)
[2022-10-11] MEDS ORDERED: methaDONE HCL 10 MG TABLET (FOR DETOX USE ONLY) PO ONE (10:00)
[2022-10-11] MEDS: PRENATAL VITAMINS W/ FOLIC ACID TABLET (FP) PO SCH (10:04)
[2022-10-11] MEDS: METHOCARBAMOL 500 MG TABLET PO PRN (10:09)
[2022-10-11] MEDS: MELATONIN 5 MG TABLETS PO SCH (22:25)
[2022-10-11] MEDS: THIAMINE HCL 100 MG TABLET (FP) PO SCH (22:25)
[2022-10-12] MEDS ORDERED: chlordiazePOXIDE HCL 10 MG CAPSULE PO PRN
[2022-10-12] MEDS: chlordiazePOXIDE HCL 10 MG CAPSULE PO SCH ×4 (06:25→22:11)
[2022-10-12] MEDS: PRENATAL VITAMINS W/ FOLIC ACID TABLET (FP) PO SCH (10:01)
[2022-10-12] MEDS: METHOCARBAMOL 500 MG TABLET PO PRN (10:02)
[2022-10-12] MEDS: MELATONIN 5 MG TABLETS PO SCH (22:10)
[2022-10-12] MEDS: THIAMINE HCL 100 MG TABLET (FP) PO SCH (22:10)
[2022-10-13] MEDS: chlordiazePOXIDE HCL 10 MG CAPSULE PO SCH ×2 (06:15→17:30)
[2022-10-13] MEDS ORDERED: methaDONE HCL 10 MG TABLET (FOR DETOX USE ONLY) PO ONE (10:00)
[2022-10-13] MEDS: PRENATAL VITAMINS W/ FOLIC ACID TABLET (FP) PO SCH (10:11)
[2022-10-13] MEDS: METHOCARBAMOL 500 MG TABLET PO PRN ×2 (10:11→22:26)
[2022-10-13] MEDS: THIAMINE HCL 100 MG TABLET (FP) PO SCH (22:10)
[2022-10-13] MEDS: MELATONIN 5 MG TABLETS PO SCH (22:10)
[2022-10-14] MEDS ORDERED: chlordiazePOXIDE HCL 10 MG CAPSULE PO ONE (05:00)
[2022-10-14] MEDS: PRENATAL VITAMINS W/ FOLIC ACID TABLET (FP) PO SCH (10:04)
[2022-10-14 12:44] VITALS: BP 115/68; PULSE 80; RESP 15; TEMP 98
== END 2022-10-14 13:40 | disposition other institution (70) | DRG 773 ==
LOC: YASAS 08:24 → Y3N 10:30
PROVIDERS: ADMIT Allergy & Immunology; ATTEND Surgery
PROC: HZ2ZZZZ Detoxification Services for Substance Abuse Treatment (ICD-10-PCS; principal; 2022-10-09)
DX: F11.23 Opioid dependence with withdrawal (principal); F10.230 Alcohol dependence with withdrawal, uncomplicated; F14.20 Cocaine dependence, uncomplicated; F17.210 Nicotine dependence, cigarettes, uncomplicated; J45.909 Unspecified asthma, uncomplicated; M41.9 Scoliosis, unspecified; Z91.199 Patient's noncompliance with other medical treatment and regimen due to unspecified reason; Z86.59 Personal history of other mental and behavioral disorders; Z62.810 Personal history of physical and sexual abuse in childhood; Z91.018 Allergy to other foods; Z91.012 Allergy to eggs; Z88.0 Allergy status to penicillin; Z56.0 Unemployment, unspecified; Z59.00 Homelessness unspecified
CPT/HCPCS: 36415; 80053; 85027; 86780; C9803-CS; U0003; U0005

== ENCOUNTER 2022-10-14 14:10 | Inpatient (IN) | payer OTHER ==
[2022-10-14] MEDS ORDERED: IBUPROFEN 400 MG TABLET (FP) PO PRN (20:04)
[2022-10-14] MEDS ORDERED: MAG HYDROX/AL HYDROX/SIMETH 30 ML UNIT-DOSE CUP PO PRN (20:04)
[2022-10-14] MEDS ORDERED: POLYETHYLENE GLYCOL (HEALTHYLAX) 3350 17 GM PACKET PO PRN (20:04)
[2022-10-14] MEDS ORDERED: MAGNESIUM HYDROX 2400MG/30ML ORAL SUSPENSION 30 ML CUP PO PRN (20:04)
[2022-10-14] MEDS ORDERED: NICOTINE 10 MG CARTRIDGE (INHALER) IH PRN (20:04)
[2022-10-14] MEDS ORDERED: P-EPHED 60MG/TRIPROLIDI 2.5MG TABLET PO PRN (20:04)
[2022-10-14] MEDS: THIAMINE HCL 100 MG TABLET (FP) PO SCH (22:36)
[2022-10-14] MEDS: MELATONIN 5 MG TABLETS PO SCH (22:36)
[2022-10-14] MEDS: hydrOXYzine PAMOATE 25 MG CAPSULE (FP) PO PRN (22:36)
[2022-10-15] MEDS: NICOTINE 7 MG/24 HOURS TOPICAL PATCH TD SCH (09:39)
[2022-10-15] MEDS: hydrOXYzine PAMOATE 25 MG CAPSULE (FP) PO PRN ×2 (09:39→21:35)
[2022-10-15] MEDS: PRENATAL VITAMINS W/ FOLIC ACID TABLET (FP) PO SCH (09:39)
[2022-10-15] MEDS: ACETAMINOPHEN 325 MG TABLET (FP) PO PRN (09:40)
[2022-10-15] MEDS: MELATONIN 5 MG TABLETS PO SCH (21:35)
[2022-10-15] MEDS: THIAMINE HCL 100 MG TABLET (FP) PO SCH (21:36)
[2022-10-16] MEDS: hydrOXYzine PAMOATE 25 MG CAPSULE (FP) PO PRN ×3 (08:54→21:44)
[2022-10-16] MEDS: NICOTINE 7 MG/24 HOURS TOPICAL PATCH TD SCH (09:43)
[2022-10-16] MEDS: PRENATAL VITAMINS W/ FOLIC ACID TABLET (FP) PO SCH (09:43)
[2022-10-16] MEDS: MELATONIN 5 MG TABLETS PO SCH (21:44)
[2022-10-16] MEDS: THIAMINE HCL 100 MG TABLET (FP) PO SCH (21:45)
[2022-10-17] MEDS: ACETAMINOPHEN 325 MG TABLET (FP) PO PRN ×2 (08:51→21:41)
[2022-10-17] MEDS: PRENATAL VITAMINS W/ FOLIC ACID TABLET (FP) PO SCH (09:07)
[2022-10-17] MEDS: NICOTINE 7 MG/24 HOURS TOPICAL PATCH TD SCH (09:07)
[2022-10-17] MEDS: hydrOXYzine PAMOATE 25 MG CAPSULE (FP) PO PRN ×2 (09:47→21:41)
[2022-10-17 13:36] LABS: HIV INTERPRETATION NEGATIVE (NEGATIVE)
[2022-10-17] MEDS ORDERED: NICOTINE 7 MG/24 HOURS TOPICAL PATCH TD PRN (15:48)
[2022-10-17] MEDS: THIAMINE HCL 100 MG TABLET (FP) PO SCH (21:40)
[2022-10-17] MEDS: MELATONIN 5 MG TABLETS PO SCH (21:41)
[2022-10-18] MEDS: PRENATAL VITAMINS W/ FOLIC ACID TABLET (FP) PO SCH (09:32)
[2022-10-18] MEDS: hydrOXYzine PAMOATE 25 MG CAPSULE (FP) PO PRN ×3 (09:33→21:11)
[2022-10-18] MEDS: THIAMINE HCL 100 MG TABLET (FP) PO SCH (21:10)
[2022-10-18] MEDS: MELATONIN 5 MG TABLETS PO SCH (21:10)
[2022-10-19] MEDS: PRENATAL VITAMINS W/ FOLIC ACID TABLET (FP) PO SCH (09:35)
[2022-10-19] MEDS: ACETAMINOPHEN 325 MG TABLET (FP) PO PRN ×2 (09:35→18:55)
[2022-10-19] MEDS: THIAMINE HCL 100 MG TABLET (FP) PO SCH (21:31)
[2022-10-19] MEDS: MELATONIN 5 MG TABLETS PO SCH (21:31)
[2022-10-20] MEDS: ACETAMINOPHEN 325 MG TABLET (FP) PO PRN ×4 (04:17→22:26)
[2022-10-20] MEDS: hydrOXYzine PAMOATE 25 MG CAPSULE (FP) PO PRN ×2 (09:15→16:17)
[2022-10-20] MEDS: PRENATAL VITAMINS W/ FOLIC ACID TABLET (FP) PO SCH (09:15)
[2022-10-20] MEDS: LOPERAMIDE HCL 2 MG CAPSULE PO PRN ×3 (09:45→22:26)
[2022-10-20] MEDS: MELATONIN 5 MG TABLETS PO SCH (21:32)
[2022-10-20] MEDS: THIAMINE HCL 100 MG TABLET (FP) PO SCH (21:32)
[2022-10-21] MEDS: guaiFENesin 200 MG/10 ML 10 ML UNIT-DOSE CUPS PO PRN ×3 (03:20→14:59)
[2022-10-21] MEDS: ACETAMINOPHEN 325 MG TABLET (FP) PO PRN ×4 (03:20→21:40)
[2022-10-21] MEDS: BENZOCAINE/MENTHOL (CHLORASEPTIC ) LOZENGE MM PRN ×3 (03:22→14:58)
[2022-10-21] MEDS: hydrOXYzine PAMOATE 25 MG CAPSULE (FP) PO PRN ×3 (08:09→21:40)
[2022-10-21] MEDS ORDERED: AZITHROMYCIN 250 MG TABLET PO ONE (10:30)
[2022-10-21] MEDS: PRENATAL VITAMINS W/ FOLIC ACID TABLET (FP) PO SCH (10:46)
[2022-10-21] MEDS: THIAMINE HCL 100 MG TABLET (FP) PO SCH (21:41)
[2022-10-21] MEDS: MELATONIN 5 MG TABLETS PO SCH (21:41)
[2022-10-22] MEDS: PRENATAL VITAMINS W/ FOLIC ACID TABLET (FP) PO SCH (09:48)
[2022-10-22] MEDS: guaiFENesin 200 MG/10 ML 10 ML UNIT-DOSE CUPS PO PRN (09:48)
[2022-10-22] MEDS: AZITHROMYCIN 250 MG TABLET PO SCH (09:48)
[2022-10-22] MEDS: BENZOCAINE/MENTHOL (CHLORASEPTIC ) LOZENGE MM PRN (09:49)
[2022-10-22] MEDS: THIAMINE HCL 100 MG TABLET (FP) PO SCH (21:34)
[2022-10-22] MEDS: MELATONIN 5 MG TABLETS PO SCH (21:34)
[2022-10-23] MEDS: guaiFENesin 200 MG/10 ML 10 ML UNIT-DOSE CUPS PO PRN ×2 (06:10→21:26)
[2022-10-23] MEDS: BENZOCAINE/MENTHOL (CHLORASEPTIC ) LOZENGE MM PRN ×2 (06:10→21:25)
[2022-10-23] MEDS: LOPERAMIDE HCL 2 MG CAPSULE PO PRN (06:45)
[2022-10-23] MEDS: PRENATAL VITAMINS W/ FOLIC ACID TABLET (FP) PO SCH (09:58)
[2022-10-23] MEDS: AZITHROMYCIN 250 MG TABLET PO SCH (09:58)
[2022-10-23] MEDS: THIAMINE HCL 100 MG TABLET (FP) PO SCH (21:27)
[2022-10-23] MEDS: MELATONIN 5 MG TABLETS PO SCH (21:27)
[2022-10-24] MEDS: ACETAMINOPHEN 325 MG TABLET (FP) PO PRN ×3 (01:56→22:50)
[2022-10-24] MEDS: AZITHROMYCIN 250 MG TABLET PO SCH (09:41)
[2022-10-24] MEDS: PRENATAL VITAMINS W/ FOLIC ACID TABLET (FP) PO SCH (09:41)
[2022-10-24] MEDS: THIAMINE HCL 100 MG TABLET (FP) PO SCH (22:49)
[2022-10-24] MEDS: MELATONIN 5 MG TABLETS PO SCH (22:49)
[2022-10-25] MEDS: ACETAMINOPHEN 325 MG TABLET (FP) PO PRN ×3 (06:08→21:31)
[2022-10-25] MEDS: PRENATAL VITAMINS W/ FOLIC ACID TABLET (FP) PO SCH (09:36)
[2022-10-25] MEDS: AZITHROMYCIN 250 MG TABLET PO SCH (09:36)
[2022-10-25] MEDS: LOPERAMIDE HCL 2 MG CAPSULE PO PRN (09:37)
[2022-10-25] MEDS: guaiFENesin 200 MG/10 ML 10 ML UNIT-DOSE CUPS PO PRN (15:01)
[2022-10-25] MEDS: BENZOCAINE/MENTHOL (CHLORASEPTIC ) LOZENGE MM PRN (15:03)
[2022-10-25] MEDS: MELATONIN 5 MG TABLETS PO SCH (21:32)
[2022-10-25] MEDS: THIAMINE HCL 100 MG TABLET (FP) PO SCH (21:32)
[2022-10-26] MEDS: ACETAMINOPHEN 325 MG TABLET (FP) PO PRN ×3 (07:23→21:40)
[2022-10-26] MEDS: LOPERAMIDE HCL 2 MG CAPSULE PO PRN (08:42)
[2022-10-26] MEDS: AZITHROMYCIN 250 MG TABLET PO SCH (10:46)
[2022-10-26] MEDS: PRENATAL VITAMINS W/ FOLIC ACID TABLET (FP) PO SCH (10:47)
[2022-10-26] MEDS: BENZOCAINE/MENTHOL (CHLORASEPTIC ) LOZENGE MM PRN ×2 (10:47→21:42)
[2022-10-26] MEDS: guaiFENesin 200 MG/10 ML 10 ML UNIT-DOSE CUPS PO PRN ×2 (10:47→21:42)
[2022-10-26] MEDS: hydrOXYzine PAMOATE 25 MG CAPSULE (FP) PO PRN (21:41)
[2022-10-26] MEDS: MELATONIN 5 MG TABLETS PO SCH (21:42)
[2022-10-26] MEDS: THIAMINE HCL 100 MG TABLET (FP) PO SCH (21:42)
[2022-10-27] MEDS: BENZOCAINE/MENTHOL (CHLORASEPTIC ) LOZENGE MM PRN (06:33)
[2022-10-27] MEDS: guaiFENesin 200 MG/10 ML 10 ML UNIT-DOSE CUPS PO PRN (06:33)
[2022-10-27 06:47] VITALS: RESP 20
[2022-10-27] MEDS: LOPERAMIDE HCL 2 MG CAPSULE PO PRN (08:52)
[2022-10-27] MEDS: AZITHROMYCIN 250 MG TABLET PO SCH (09:25)
[2022-10-27] MEDS: PRENATAL VITAMINS W/ FOLIC ACID TABLET (FP) PO SCH (09:25)
[2022-10-27] MEDS: ACETAMINOPHEN 325 MG TABLET (FP) PO PRN (13:03)
[2022-10-27 21:31] VITALS: BP 127/76; PULSE 114; TEMP 97.3
== END 2022-10-27 19:00 | disposition home or self-care (01) | DRG 772 ==
LOC: YASAS 14:10 → Y3E 14:12
PROVIDERS: ADMIT Allergy & Immunology; ATTEND Psychiatry & Neurology Pain Medicine
PROC: HZ42ZZZ Group Counseling for Substance Abuse Treatment, Cognitive-Behavioral (ICD-10-PCS; principal; 2022-10-14)
DX: F11.20 Opioid dependence, uncomplicated (principal); F10.20 Alcohol dependence, uncomplicated; F14.20 Cocaine dependence, uncomplicated; F17.210 Nicotine dependence, cigarettes, uncomplicated; F41.9 Anxiety disorder, unspecified; J06.9 Acute upper respiratory infection, unspecified; M54.50 Low back pain, unspecified; G89.29 Other chronic pain; Z88.0 Allergy status to penicillin; Z91.012 Allergy to eggs; Z91.018 Allergy to other foods
CPT/HCPCS: 36415; 86803; 87389; 87522

== ENCOUNTER 2023-01-14 09:21 | Inpatient (IN) | payer OTHER ==
[2023-01-14 10:18] VITALS: BMI 20.3
[2023-01-14] MEDS ORDERED: NALOXONE HCL 0.4 MG/ML VIAL IM PRN (10:37)
[2023-01-14] MEDS ORDERED: NICOTINE 10 MG CARTRIDGE (INHALER) IH PRN (10:37)
[2023-01-14] MEDS ORDERED: guaiFENesin 600 MG TABLET.ER (FP) PO PRN (10:37)
[2023-01-14] MEDS ORDERED: NALOXONE HCL (KLOXXADO) 8 MG SPRAY NS PRN (10:37)
[2023-01-14] MEDS ORDERED: cloNIDine HCL 0.1 MG TABLET PO PRN (10:37)
[2023-01-14] MEDS ORDERED: ONDANSETRON *ODT* 4 MG TABLET SL PRN (10:37)
[2023-01-14] MEDS ORDERED: BISMUTH SUBSALICYLATE 524 MG/30 ML PO PRN (10:37)
[2023-01-14] MEDS ORDERED: hydrOXYzine PAMOATE 25 MG CAPSULE (FP) PO PRN (10:37)
[2023-01-14] MEDS ORDERED: MAG HYDROX/AL HYDROX/SIMETH 30 ML UNIT-DOSE CUP PO PRN (10:37)
[2023-01-14] MEDS ORDERED: IBUPROFEN 400 MG TABLET (FP) PO PRN (10:37)
[2023-01-14] MEDS ORDERED: LOPERAMIDE HCL 2 MG CAPSULE PO PRN (10:37)
[2023-01-14] MEDS ORDERED: BENZONATATE 200 MG CAPSULE PO PRN (10:37)
[2023-01-14] MEDS ORDERED: MAGNESIUM HYDROX 2400MG/30ML ORAL SUSPENSION 30 ML CUP PO PRN (10:37)
[2023-01-14] MEDS ORDERED: DICYCLOMINE HCL 10 MG CAPSULE PO PRN (10:37)
[2023-01-14] MEDS ORDERED: BENZOCAINE/MENTHOL (CHLORASEPTIC ) LOZENGE MM PRN (10:37)
[2023-01-14] MEDS ORDERED: ACETAMINOPHEN 325 MG TABLET (FP) PO PRN (10:37)
[2023-01-14] MEDS ORDERED: IBUPROFEN 600 MG TABLET (FP) PO PRN (10:37)
[2023-01-14] MEDS ORDERED: methaDONE HCL 10 MG TABLET (FOR DETOX USE ONLY) PO ONE (10:37)
[2023-01-14] MEDS ORDERED: POLYETHYLENE GLYCOL (HEALTHYLAX) 3350 17 GM PACKET PO PRN (10:37)
[2023-01-14] MEDS ORDERED: methaDONE HCL 10 MG TABLET (FOR DETOX USE ONLY) ONE (11:40)
[2023-01-14] MEDS: THIAMINE HCL 100 MG TABLET (FP) PO SCH (22:20)
[2023-01-14] MEDS: diazePAM 5 MG TABLET PO PRN (22:20)
[2023-01-14] MEDS: METHOCARBAMOL 500 MG TABLET PO PRN (22:20)
[2023-01-14] MEDS: MELATONIN 5 MG TABLETS PO SCH (22:21)
[2023-01-15] MEDS: PRENATAL VITAMINS W/ FOLIC ACID TABLET (FP) PO SCH (09:40)
[2023-01-15] MEDS: diazePAM 5 MG TABLET PO PRN ×2 (12:53→19:41)
[2023-01-15] MEDS: THIAMINE HCL 100 MG TABLET (FP) PO SCH (23:36)
[2023-01-15] MEDS: MELATONIN 5 MG TABLETS PO SCH (23:36)
[2023-01-16] MEDS ORDERED: methaDONE HCL 10 MG TABLET (FOR DETOX USE ONLY) PO ONE (10:00)
[2023-01-16] MEDS: PRENATAL VITAMINS W/ FOLIC ACID TABLET (FP) PO SCH (10:09)
[2023-01-16] MEDS: diazePAM 5 MG TABLET PO PRN ×2 (10:10→18:56)
[2023-01-16 11:58] LABS: HEMATOCRIT 38.1 % (35.4-49); HEMOGLOBIN 13.3 GM/dL (11.7-16.9); MCH 29.5 pg (25.7-33.7); MCHC 34.9 g/dl (32.0-35.9); MEAN CELL VOLUME 84.4 fl (80-96); MEAN PLT VOLUME 7.7 fl (7.5-11.1); PLATELET COUNT 249 10^3/uL (134-434); RBC 4.52 M/mm3 (4.00-5.60); RDW 14.9 % (11.9-15.9); WHITE BLOOD COUNT 4.4 K/mm3 (4.0-10.0)
[2023-01-16 12:26] LABS: CALCIUM 8.6 mg/dL (8.5-10.1)
[2023-01-16 12:27] LABS: ALBUMIN 3.4 g/dl (3.4-5.0); BLOOD UREA NITROGEN 14.6 mg/dL (7-18)
[2023-01-16 12:30] LABS: CREATININE 0.7 mg/dL (0.55-1.3)
[2023-01-16 12:32] LABS: BILIRUBIN,TOTAL 0.4 mg/dL (0.2-1); TOT PROT 6.9 g/dl (6.4-8.2)
[2023-01-16] MEDS: MELATONIN 5 MG TABLETS PO SCH (23:01)
[2023-01-16] MEDS: THIAMINE HCL 100 MG TABLET (FP) PO SCH (23:02)
[2023-01-17] MEDS: METHOCARBAMOL 500 MG TABLET PO PRN ×2 (10:42→19:32)
[2023-01-17] MEDS: PRENATAL VITAMINS W/ FOLIC ACID TABLET (FP) PO SCH (10:42)
[2023-01-17] MEDS: diazePAM 5 MG TABLET PO PRN (10:43)
[2023-01-17] MEDS: THIAMINE HCL 100 MG TABLET (FP) PO SCH (21:52)
[2023-01-17] MEDS ORDERED: SUVOREXANT 10 MG TABLET PO PRN (22:00)
[2023-01-18] MEDS ORDERED: methaDONE HCL 10 MG TABLET (FOR DETOX USE ONLY) PO ONE (10:00)
[2023-01-18 10:02] VITALS: RESP 18
[2023-01-18] MEDS: PRENATAL VITAMINS W/ FOLIC ACID TABLET (FP) PO SCH (10:09)
[2023-01-18] MEDS: THIAMINE HCL 100 MG TABLET (FP) PO SCH (23:29)
[2023-01-19 09:54] VITALS: BP 114/72; PULSE 85; TEMP 98.6
[2023-01-19] MEDS: PRENATAL VITAMINS W/ FOLIC ACID TABLET (FP) PO SCH (10:44)
== END 2023-01-19 11:14 | disposition other institution (70) | DRG 773 ==
LOC: YASAS 09:21 → Y6N 10:53
PROVIDERS: ADMIT Allergy & Immunology; ATTEND Surgery
PROC: HZ2ZZZZ Detoxification Services for Substance Abuse Treatment (ICD-10-PCS; principal; 2023-01-14)
DX: F11.23 Opioid dependence with withdrawal (principal); F14.20 Cocaine dependence, uncomplicated; F10.10 Alcohol abuse, uncomplicated; F17.210 Nicotine dependence, cigarettes, uncomplicated; F19.282 Other psychoactive substance dependence with psychoactive substance-induced sleep disorder; F19.280 Other psychoactive substance dependence with psychoactive substance-induced anxiety disorder; F31.9 Bipolar disorder, unspecified; F51.05 Insomnia due to other mental disorder; F90.9 Attention-deficit hyperactivity disorder, unspecified type; B18.2 Chronic viral hepatitis C; J45.20 Mild intermittent asthma, uncomplicated; M54.50 Low back pain, unspecified; G89.29 Other chronic pain; Z62.810 Personal history of physical and sexual abuse in childhood; R63.4 Abnormal weight loss; Z68.20 Body mass index [BMI] 20.0-20.9, adult; Z88.0 Allergy status to penicillin
CPT/HCPCS: 36415; 80053; 85027; 86780; 87811; 93005; 93010; C9803-CS; U0003; U0005

== ENCOUNTER 2023-01-19 11:11 | Inpatient (IN) | payer OTHER ==
[2023-01-19] MEDS ORDERED: MAG HYDROX/AL HYDROX/SIMETH 30 ML UNIT-DOSE CUP PO PRN (11:23)
[2023-01-19] MEDS ORDERED: POLYETHYLENE GLYCOL (HEALTHYLAX) 3350 17 GM PACKET PO PRN (11:23)
[2023-01-19] MEDS ORDERED: NALOXONE HCL 0.4 MG/ML VIAL IVPUSH PRN (11:23)
[2023-01-19] MEDS ORDERED: LOPERAMIDE HCL 2 MG CAPSULE PO PRN (11:23)
[2023-01-19] MEDS ORDERED: BENZOCAINE/MENTHOL (CHLORASEPTIC ) LOZENGE MM PRN (11:23)
[2023-01-19] MEDS ORDERED: guaiFENesin 600 MG TABLET.ER (FP) PO PRN (11:23)
[2023-01-19] MEDS ORDERED: MAGNESIUM HYDROX 2400MG/30ML ORAL SUSPENSION 30 ML CUP PO PRN (11:23)
[2023-01-19] MEDS ORDERED: BENZONATATE 200 MG CAPSULE PO PRN (11:23)
[2023-01-19] MEDS ORDERED: hydrOXYzine PAMOATE 25 MG CAPSULE (FP) PO PRN (11:23)
[2023-01-19] MEDS ORDERED: NALOXONE HCL (KLOXXADO) 8 MG SPRAY NS PRN (11:23)
[2023-01-19] MEDS: IBUPROFEN 400 MG TABLET (FP) PO PRN (19:54)
[2023-01-19] MEDS: hydrOXYzine PAMOATE 50 MG CAPSULE (FP) PO PRN (19:54)
[2023-01-19] MEDS: THIAMINE HCL 100 MG TABLET (FP) PO SCH (21:44)
[2023-01-19] MEDS ORDERED: MELATONIN 5 MG TABLETS PO SCH (22:00)
[2023-01-19] MEDS ORDERED: SUVOREXANT 10 MG TABLET PO PRN (22:00)
[2023-01-20] MEDS ORDERED: PRENATAL VITAMINS W/ FOLIC ACID TABLET (FP) PO SCH (10:00)
[2023-01-20 13:18] LABS: HIV INTERPRETATION NEGATIVE (NEGATIVE)
[2023-01-20] MEDS: hydrOXYzine PAMOATE 50 MG CAPSULE (FP) PO PRN (16:35)
[2023-01-20] MEDS: ACETAMINOPHEN 325 MG TABLET (FP) PO PRN (16:35)
[2023-01-20] MEDS: THIAMINE HCL 100 MG TABLET (FP) PO SCH ×2 (21:36→21:37)
[2023-01-21] MEDS: IBUPROFEN 400 MG TABLET (FP) PO PRN ×2 (10:22→15:37)
[2023-01-21] MEDS: METHOCARBAMOL 500 MG TABLET PO PRN ×3 (10:22→21:10)
[2023-01-21] MEDS: hydrOXYzine PAMOATE 50 MG CAPSULE (FP) PO PRN (14:06)
[2023-01-21] MEDS: THIAMINE HCL 100 MG TABLET (FP) PO SCH (21:11)
[2023-01-22] MEDS: hydrOXYzine PAMOATE 50 MG CAPSULE (FP) PO PRN ×2 (09:42→21:05)
[2023-01-22] MEDS: METHOCARBAMOL 500 MG TABLET PO PRN ×2 (09:42→17:00)
[2023-01-22] MEDS: IBUPROFEN 400 MG TABLET (FP) PO PRN (09:43)
[2023-01-22] MEDS: ACETAMINOPHEN 325 MG TABLET (FP) PO PRN (17:00)
[2023-01-22] MEDS: IBUPROFEN 600 MG TABLET (FP) PO PRN (21:05)
[2023-01-22] MEDS: SUVOREXANT 10 MG TABLET PO PRN (21:06)
[2023-01-22] MEDS: THIAMINE HCL 100 MG TABLET (FP) PO SCH (21:08)
[2023-01-23] MEDS: ACETAMINOPHEN 325 MG TABLET (FP) PO PRN (07:02)
[2023-01-23] MEDS: METHOCARBAMOL 500 MG TABLET PO PRN ×2 (09:34→21:04)
[2023-01-23] MEDS: IBUPROFEN 600 MG TABLET (FP) PO PRN (09:35)
[2023-01-23] MEDS: hydrOXYzine PAMOATE 50 MG CAPSULE (FP) PO PRN (21:04)
[2023-01-23] MEDS: SUVOREXANT 10 MG TABLET PO PRN (21:04)
[2023-01-23] MEDS: THIAMINE HCL 100 MG TABLET (FP) PO SCH (21:04)
[2023-01-23] MEDS: IBUPROFEN 400 MG TABLET (FP) PO PRN (21:05)
[2023-01-24] MEDS: IBUPROFEN 400 MG TABLET (FP) PO PRN (07:00)
[2023-01-24] MEDS: METHOCARBAMOL 500 MG TABLET PO PRN ×3 (08:44→22:32)
[2023-01-24] MEDS: hydrOXYzine PAMOATE 50 MG CAPSULE (FP) PO PRN (10:59)
[2023-01-24] MEDS: SUVOREXANT 10 MG TABLET PO PRN (21:27)
[2023-01-24] MEDS: ACETAMINOPHEN 325 MG TABLET (FP) PO PRN (21:28)
[2023-01-24] MEDS: THIAMINE HCL 100 MG TABLET (FP) PO SCH (21:35)
[2023-01-25] MEDS: METHOCARBAMOL 500 MG TABLET PO PRN ×3 (04:44→21:30)
[2023-01-25 07:06] VITALS: RESP 18
[2023-01-25] MEDS: hydrOXYzine PAMOATE 50 MG CAPSULE (FP) PO PRN (10:15)
[2023-01-25] MEDS: IBUPROFEN 400 MG TABLET (FP) PO PRN (10:16)
[2023-01-25] MEDS: ACETAMINOPHEN 325 MG TABLET (FP) PO PRN ×2 (17:31→21:31)
[2023-01-25] MEDS: SUVOREXANT 15 MG TABLET PO PRN (21:32)
[2023-01-25] MEDS: THIAMINE HCL 100 MG TABLET (FP) PO SCH (21:33)
[2023-01-26] MEDS: METHOCARBAMOL 500 MG TABLET PO PRN ×2 (09:06→21:28)
[2023-01-26] MEDS: ACETAMINOPHEN 325 MG TABLET (FP) PO PRN (16:01)
[2023-01-26] MEDS: SUVOREXANT 15 MG TABLET PO PRN (21:27)
[2023-01-26] MEDS: hydrOXYzine PAMOATE 50 MG CAPSULE (FP) PO PRN (21:28)
[2023-01-26] MEDS: THIAMINE HCL 100 MG TABLET (FP) PO SCH (21:43)
[2023-01-27 07:42] VITALS: BP 131/68; PULSE 77; TEMP 98.3
[2023-01-27] MEDS: ACETAMINOPHEN 325 MG TABLET (FP) PO PRN (08:48)
[2023-01-27] MEDS: METHOCARBAMOL 500 MG TABLET PO PRN (09:48)
[2023-01-27] MEDS ORDERED: BENZOCAINE 20 % GEL TUBE MM PRN (11:57)
== END 2023-01-27 12:45 | disposition home or self-care (01) | DRG 772 ==
LOC: YASAS 11:11 → Y3E 11:14 → Y5N 01-23 22:22
PROVIDERS: ADMIT Allergy & Immunology; ATTEND Psychiatry & Neurology Pain Medicine
PROC: HZ42ZZZ Group Counseling for Substance Abuse Treatment, Cognitive-Behavioral (ICD-10-PCS; principal; 2023-01-19)
DX: F11.20 Opioid dependence, uncomplicated (principal); G47.00 Insomnia, unspecified; B18.2 Chronic viral hepatitis C; K08.89 Other specified disorders of teeth and supporting structures; R63.4 Abnormal weight loss; Z68.21 Body mass index [BMI] 21.0-21.9, adult; Z88.0 Allergy status to penicillin; Z91.012 Allergy to eggs
CPT/HCPCS: 36415; 87389

== ENCOUNTER 2024-09-05 18:55 | Inpatient (IN) | payer OTHER ==
[2024-09-05 21:14] VITALS: BMI 21.8
[2024-09-05] MEDS ORDERED: NALOXONE (NARCAN) HCL 4 MG/0.1 ML SPRAY NS PRN (21:54)
[2024-09-05] MEDS ORDERED: MAG HYDROX/AL HYDROX/SIMETH 30 ML UNIT-DOSE CUP PO PRN (21:54)
[2024-09-05] MEDS ORDERED: BENZONATATE 200 MG CAPSULE PO PRN (21:54)
[2024-09-05] MEDS ORDERED: ONDANSETRON *ODT* 4 MG TABLET SL PRN (21:54)
[2024-09-05] MEDS ORDERED: DICYCLOMINE HCL 10 MG CAPSULE PO PRN (21:54)
[2024-09-05] MEDS ORDERED: BENZOCAINE/MENTHOL (CHLORASEPTIC ) LOZENGE MM PRN (21:54)
[2024-09-05] MEDS ORDERED: BISMUTH SUBSALICYLATE 524 MG/30 ML PO PRN (21:54)
[2024-09-05] MEDS ORDERED: POLYETHYLENE GLYCOL (HEALTHYLAX) 3350 17 GM PACKET PO PRN (21:54)
[2024-09-05] MEDS ORDERED: guaiFENesin 600 MG TABLET.ER (FP) PO PRN (21:54)
[2024-09-05] MEDS ORDERED: MAGNESIUM HYDROX 2400MG/30ML ORAL SUSPENSION 30 ML CUP PO PRN (21:54)
[2024-09-05] MEDS ORDERED: ACETAMINOPHEN 325 MG TABLET (FP) PO PRN (21:54)
[2024-09-05] MEDS ORDERED: NALOXONE (NYS OPIOID OVERDOSE PROGRAM) 4 MG/0.1 ML SPRAY NS PRN (21:54)
[2024-09-05] MEDS ORDERED: NICOTINE POLACRILEX 2 MG GUM BUC PRN (21:54)
[2024-09-05] MEDS ORDERED: IBUPROFEN 400 MG TABLET (FP) PO PRN (21:54)
[2024-09-05] MEDS ORDERED: LOPERAMIDE HCL 2 MG CAPSULE PO PRN (21:54)
[2024-09-05] MEDS ORDERED: cloNIDine HCL 0.1 MG TABLET PO PRN (21:56)
[2024-09-05] MEDS ORDERED: methaDONE HCL 10 MG TABLET (FOR DETOX USE ONLY) ONE (22:43)
[2024-09-05] MEDS ORDERED: hydrOXYzine PAMOATE 25 MG CAPSULE (FP) PO ONE (22:43)
[2024-09-05] MEDS: hydrOXYzine PAMOATE 25 MG CAPSULE (FP) PO PRN (22:46)
[2024-09-05] MEDS ORDERED: BUPRENORPHINE/NALOXONE 0.5 MG/0.125 MG FILM ONE (22:51)
[2024-09-05] MEDS: methaDONE HCL 10 MG TABLET (FOR DETOX USE ONLY) PO ONE (22:54)
[2024-09-05] MEDS: BUPRENORPHINE/NALOXONE 0.5 MG/0.125 MG FILM SL ONE (22:55)
[2024-09-05] MEDS ORDERED: methaDONE HCL 10 MG TABLET (FOR DETOX USE ONLY) PO ONE (23:15)
[2024-09-06] MEDS ORDERED: MELATONIN 5 MG TABLETS ONE (01:32)
[2024-09-06] MEDS ORDERED: levETIRAcetam 500 MG TABLET (FP) PO ONE ×2 (01:32→09:13)
[2024-09-06] MEDS: levETIRAcetam 500 MG TABLET (FP) PO SCH (01:34)
[2024-09-06] MEDS: MELATONIN 5 MG TABLETS PO SCH (01:34)
[2024-09-06] MEDS: THIAMINE 100 MG TABLET PO SCH (01:34)
[2024-09-06] MEDS: cloNIDine HCL 0.1 MG TABLET PO SCH (06:35)
[2024-09-06] MEDS ORDERED: NICOTINE 21 MG/24 HOURS TOPICAL PATCH ONE (09:13)
[2024-09-06] MEDS ORDERED: methaDONE HCL 10 MG TABLET (FOR DETOX USE ONLY) ONE (09:13)
[2024-09-06] MEDS ORDERED: BUPRENORPHINE/NALOXONE 0.5 MG/0.125 MG FILM ONE ×2 (09:14→09:18)
[2024-09-06] MEDS ORDERED: cloNIDine HCL 0.1 MG TABLET ONE (09:14)
[2024-09-06] MEDS ORDERED: PRENATAL VITAMINS W/ FOLIC ACID TABLET (FP) PO ONE (09:14)
[2024-09-06] MEDS: PRENATAL VITAMINS W/ FOLIC ACID TABLET (FP) PO SCH (09:17)
[2024-09-06] MEDS: NICOTINE 21 MG/24 HOURS TOPICAL PATCH TD SCH (09:17)
[2024-09-06] MEDS: BUPRENORPHINE/NALOXONE 0.5 MG/0.125 MG FILM SL SCH (09:17)
[2024-09-06] MEDS: IBUPROFEN 600 MG TABLET (FP) PO PRN (13:46)
[2024-09-06 16:36] LABS: HEMATOCRIT 37.9 % (35.4-49); HEMOGLOBIN 12.8 GM/dL (11.7-16.9); MCH 30.9 pg (25.7-33.7); MCHC 33.7 g/dl (32.0-35.9); MEAN CELL VOLUME 91.8 fl (80-96); MEAN PLT VOLUME 8.9 fl (7.5-11.1); PLATELET COUNT 195 10^3/uL (134-434); RBC 4.13 M/mm3 (4.00-5.60); RDW 14.9 % (11.9-15.9); WHITE BLOOD COUNT 4.9 K/mm3 (4.0-10.0)
[2024-09-06 16:39] LABS: CHLORIDE 104 mmol/L (98-107); POTASSIUM 4.2 mmol/L (3.5-5.1); SODIUM 141 mmol/L (136-145)
[2024-09-06 16:41] LABS: CALCIUM 8.7 mg/dL (8.5-10.1)
[2024-09-06 16:42] LABS: ALBUMIN 3.5 g/dl (3.4-5.0); ANION GAP 5 mmol/L (4-13); BLOOD UREA NITROGEN 19.7 mg/dL (7-18); CO2 33 mmol/L (21-32); GLUCOSE,RANDOM 92 mg/dL (74-106)
[2024-09-06 16:45] LABS: SGOT/AST 73 U/L (15-37); SGPT/ALT 53 U/L (13-61)
[2024-09-06 16:47] LABS: ALK PHOS 97 U/L (45-117); BILIRUBIN,TOTAL 0.4 mg/dL (0.2-1); TOT PROT 6.4 g/dl (6.4-8.2)
[2024-09-07] MEDS: BUPRENORPHINE/NALOXONE 2 MG/0.5 MG FILM PACKET SL SCH (09:57)
[2024-09-07] MEDS ORDERED: methaDONE HCL 10 MG TABLET (FOR DETOX USE ONLY) PO ONE (10:00)
[2024-09-07] MEDS: methaDONE HCL 10 MG TABLET (FOR DETOX USE ONLY) PO ONE (10:05)
[2024-09-08] MEDS: BUPRENORPHINE/NALOXONE 4 MG/1 MG FILM PACKET SL SCH (10:33)
[2024-09-08] MEDS: P-EPHED 60MG/TRIPROLIDI 2.5MG TABLET PO PRN (12:57)
[2024-09-08] MEDS: METHOCARBAMOL 500 MG TABLET PO PRN (22:20)
[2024-09-09 05:38] VITALS: RESP 16
[2024-09-09] MEDS ORDERED: methaDONE HCL 10 MG TABLET (FOR DETOX USE ONLY) PO ONE (10:00)
[2024-09-09] MEDS: BUPRENORPHINE/NALOXONE 8 MG/2 MG FILM PACKET SL SCH (10:33)
[2024-09-09] MEDS: methaDONE HCL 10 MG TABLET (FOR DETOX USE ONLY) PO ONE (10:33)
[2024-09-09 17:00] VITALS: BP 115/65; PULSE 58; TEMP 98
[2024-09-10] MEDS ORDERED: BUPRENORPHINE/NALOXONE 8 MG/2 MG FILM PACKET SL SCH (10:00)
== END 2024-09-10 09:50 | disposition home or self-care (01) | DRG 773 ==
LOC: YASAS 18:55 → Y3N 09-06 09:26
PROVIDERS: ADMIT Allergy & Immunology; ATTEND Surgery
PROC: HZ2ZZZZ Detoxification Services for Substance Abuse Treatment (ICD-10-PCS; principal; 2024-09-06)
DX: F11.23 Opioid dependence with withdrawal (principal); F14.20 Cocaine dependence, uncomplicated; F12.20 Cannabis dependence, uncomplicated; F16.20 Hallucinogen dependence, uncomplicated; F17.210 Nicotine dependence, cigarettes, uncomplicated; F31.9 Bipolar disorder, unspecified; F19.24 Other psychoactive substance dependence with psychoactive substance-induced mood disorder; F43.10 Post-traumatic stress disorder, unspecified; B18.2 Chronic viral hepatitis C
CPT/HCPCS: 36415; 80053; 80305; 80307; 85027; 86780; 93005; 93010

== ENCOUNTER 2024-10-31 04:36 | Inpatient (IN) | payer OTHER ==
[2024-10-31 08:00] VITALS: BMI 21.2
[2024-10-31] MEDS ORDERED: BENZONATATE 200 MG CAPSULE PO PRN (08:18)
[2024-10-31] MEDS ORDERED: BISMUTH SUBSALICYLATE 262 MG/15 ML BTL PO PRN (08:18)
[2024-10-31] MEDS ORDERED: NALOXONE (NARCAN) HCL 4 MG/0.1 ML SPRAY NS PRN (08:18)
[2024-10-31] MEDS ORDERED: IBUPROFEN 400 MG TABLET (FP) PO PRN (08:18)
[2024-10-31] MEDS ORDERED: BENZOCAINE/MENTHOL (CHLORASEPTIC ) LOZENGE MM PRN (08:18)
[2024-10-31] MEDS ORDERED: MAG HYDROX/AL HYDROX/SIMETH 30 ML UNIT-DOSE CUP PO PRN (08:18)
[2024-10-31] MEDS ORDERED: MAGNESIUM HYDROX 2400MG/30ML ORAL SUSPENSION 30 ML CUP PO PRN (08:18)
[2024-10-31] MEDS ORDERED: LOPERAMIDE HCL 2 MG CAPSULE PO PRN (08:18)
[2024-10-31] MEDS ORDERED: guaiFENesin 600 MG TABLET.ER (FP) PO PRN (08:18)
[2024-10-31] MEDS ORDERED: ONDANSETRON *ODT* 4 MG TABLET SL PRN (08:18)
[2024-10-31] MEDS ORDERED: POLYETHYLENE GLYCOL (HEALTHYLAX) 3350 17 GM PACKET PO PRN (08:18)
[2024-10-31] MEDS ORDERED: DICYCLOMINE HCL 10 MG CAPSULE PO PRN (08:18)
[2024-10-31] MEDS ORDERED: NICOTINE POLACRILEX 4 MG GUM BUC PRN (08:18)
[2024-10-31] MEDS: PRENATAL VITAMINS W/ FOLIC ACID TABLET (FP) PO SCH (10:08)
[2024-10-31] MEDS: diazePAM 5 MG TABLET PO SCH (10:08)
[2024-10-31 12:14] LABS: HIV INTERPRETATION NEGATIVE (NEGATIVE)
[2024-10-31] MEDS: PNEUMOC 20-VAL CONJ-DIP CRM/PF 0.5 ML SYRINGE IM ONE (12:22)
[2024-10-31] MEDS: IBUPROFEN 600 MG TABLET (FP) PO PRN (19:38)
[2024-10-31] MEDS ORDERED: BUPRENORPHINE/NALOXONE 8 MG/2 MG FILM PACKET SL SCH (22:00)
[2024-10-31] MEDS: METHOCARBAMOL 500 MG TABLET PO PRN (22:49)
[2024-10-31] MEDS: THIAMINE 100 MG TABLET PO SCH (22:49)
[2024-10-31] MEDS: MELATONIN 5 MG TABLETS PO SCH (22:50)
[2024-11-01] MEDS ORDERED: clonazePAM 0.5 MG ODT TABLETS SL PRN (10:51)
[2024-11-01] MEDS ORDERED: cloNIDine HCL 0.1 MG TABLET PO PRN (10:51)
[2024-11-01 11:12] LABS: HEMATOCRIT 40.4 % (35.4-49); HEMOGLOBIN 13.5 GM/dL (11.7-16.9); MCH 30.1 pg (25.7-33.7); MCHC 33.3 g/dl (32.0-35.9); MEAN CELL VOLUME 90.3 fl (80-96); MEAN PLT VOLUME 8.7 fl (7.5-11.1); PLATELET COUNT 171 10^3/uL (134-434); RBC 4.48 M/mm3 (4.00-5.60); RDW 13.3 % (11.9-15.9); WHITE BLOOD COUNT 3.8 K/mm3 (4.0-10.0)
[2024-11-01] MEDS: methaDONE HCL 10 MG TABLET (FOR DETOX USE ONLY) PO ONE (11:38)
[2024-11-01] MEDS: FLU VACCINE (FLULAVAL) PF 45 MCG/0.5 ML SYRINGE 2024-2025 IM ONE (12:45)
[2024-11-01] MEDS: diazePAM 5 MG TABLET PO PRN (14:07)
[2024-11-01] MEDS: ACETAMINOPHEN 325 MG TABLET (FP) PO PRN (14:08)
[2024-11-01 14:15] LABS: POTASSIUM 4.2 mmol/L (3.5-5.1)
[2024-11-01 14:21] LABS: ALBUMIN 3.4 g/dl (3.4-5.0)
[2024-11-01 14:24] LABS: BILIRUBIN,TOTAL 0.4 mg/dL (0.2-1); BLOOD UREA NITROGEN 20.1 mg/dL (7-18); CALCIUM 8.6 mg/dL (8.5-10.1); CREATININE 0.8 mg/dL (0.55-1.3); TOT PROT 6.1 g/dl (6.4-8.2)
[2024-11-01] MEDS: methaDONE HCL 10 MG TABLET (FOR DETOX USE ONLY) PO PRN (17:19)
[2024-11-02] MEDS: diazePAM 5 MG TABLET PO SCH (06:08)
[2024-11-03] MEDS: diazePAM 5 MG TABLET PO SCH (06:03)
[2024-11-03] MEDS: methaDONE HCL 10 MG TABLET (FOR DETOX USE ONLY) PO ONE (09:44)
[2024-11-03] MEDS: LIDOCAINE 5% TOPICAL PATCH TP SCH (09:45)
[2024-11-03] MEDS: hydrOXYzine PAMOATE 25 MG CAPSULE (FP) PO PRN (11:24)
[2024-11-03] MEDS: LIDOCAINE PATCH REMOVAL MC SCH (22:34)
[2024-11-04] MEDS: diazePAM 5 MG TABLET PO ONE (06:02)
[2024-11-04] MEDS: LIDOCAINE 5% TOPICAL PATCH TP ONE (15:13)
[2024-11-04] MEDS ORDERED: LIDOCAINE PATCH REMOVAL MC SCH (22:00)
[2024-11-05] MEDS: methaDONE HCL 10 MG TABLET (FOR DETOX USE ONLY) PO ONE (10:10)
[2024-11-05 13:37] VITALS: TEMP 97.7
[2024-11-05] MEDS: NALOXONE (NYS OPIOID OVERDOSE PROGRAM) 4 MG/0.1 ML SPRAY NS SCH (14:54)
[2024-11-05] MEDS: LACTULOSE 20 GM/30 ML UDC (FOR ORAL USE ONLY) PO SCH (17:18)
[2024-11-05 21:04] VITALS: RESP 16
[2024-11-06 10:51] VITALS: BP 104/56; PULSE 75
== END 2024-11-06 10:15 | disposition home or self-care (01) | DRG 773 ==
LOC: YASAS 04:36 → Y6N 08:57
PROVIDERS: ADMIT Allergy & Immunology; ATTEND Family Medicine Addiction Medicine
PROC: HZ2ZZZZ Detoxification Services for Substance Abuse Treatment (ICD-10-PCS; principal; 2024-11-06)
DX: F11.23 Opioid dependence with withdrawal (principal); F10.230 Alcohol dependence with withdrawal, uncomplicated; F14.20 Cocaine dependence, uncomplicated; F16.20 Hallucinogen dependence, uncomplicated; F12.20 Cannabis dependence, uncomplicated; F17.213 Nicotine dependence, cigarettes, with withdrawal; F19.94 Other psychoactive substance use, unspecified with psychoactive substance-induced mood disorder; F19.980 Other psychoactive substance use, unspecified with psychoactive substance-induced anxiety disorder; F51.02 Adjustment insomnia; F90.9 Attention-deficit hyperactivity disorder, unspecified type; F31.9 Bipolar disorder, unspecified; F43.10 Post-traumatic stress disorder, unspecified; E72.20 Disorder of urea cycle metabolism, unspecified; B18.2 Chronic viral hepatitis C; R63.4 Abnormal weight loss; R94.5 Abnormal results of liver function studies; J45.909 Unspecified asthma, uncomplicated; R74.01 Elevation of levels of liver transaminase levels; S99.822A Other specified injuries of left foot, initial encounter; X58.XXXA Exposure to other specified factors, initial encounter; Y93.9 Activity, unspecified; Y92.9 Unspecified place or not applicable; W18.39XA Other fall on same level, initial encounter; Y93.89 Activity, other specified; Y92.231 Patient bathroom in hospital as the place of occurrence of the external cause; Z88.0 Allergy status to penicillin; Z56.0 Unemployment, unspecified
CPT/HCPCS: 36415; 80053; 80305; 80307; 82140; 84450; 85027; 86780; 87389; 90677; 93005; 93010; G0009